=== PATIENT | female | born 1950 | race Caucasian/White ===

== ENCOUNTER → 2016-07-04 | Outpatient (CLI) | payer MEDICARE ==
[2016-07-04 11:30] LABS: HEMATOCRIT 41.8 % (36.0-47.0); HEMOGLOBIN 14.4 g/dL (12.0-15.5); HGB HCT DIFFERENCE 1.4; MEAN CORPUSCULAR HEMOGLOBIN 32.2 pg (27.0-33.4); MEAN CORPUSCULAR HGB CONC 34.5 g/dL (32.0-36.0); MEAN CORPUSCULAR VOLUME 93 fl (80-97); RED BLOOD COUNT 4.48 10^6/uL (3.72-5.28); RED CELL DISTRIBUTION WIDTH 12.8 % (11.5-14.0); WHITE BLOOD COUNT 5.9 10^3/uL (4.0-10.5)
[2016-07-04 11:44] LABS: ALANINE AMINOTRANSFERASE 22 U/L (9-52); ALBUMIN 4.4 g/dL (3.5-5.0); ALKALINE PHOSPHATASE 64 U/L (38-126); ANION GAP 13 (5-19); ASPARTATE AMINO TRANSFERASE 24 U/L (14-36); BILIRUBIN,DIRECT 0.3 mg/dL (0.0-0.4); BILIRUBIN,TOTAL 0.7 mg/dL (0.2-1.3); BLOOD UREA NITROGEN 29 mg/dL (7-20); CALCIUM 9.8 mg/dL (8.4-10.2); CARBON DIOXIDE 26 mmol/L (22-30); CHLORIDE 105 mmol/L (98-107); CHOLESTEROL 223.62 mg/dL (0-200); CREATININE RESULT 1.12 mg/dL (0.52-1.25); Direct HDL 41 mg/dL (>40); GLUCOSE 100 mg/dL (75-110); POTASSIUM 4.1 mmol/L (3.6-5.0); SODIUM 144.1 mmol/L (137-145); TOTAL PROTEIN 6.7 g/dL (6.3-8.2); TRIGLYCERIDES 163 mg/dL (<150)
[2016-07-04 11:55] LABS: DIRECT LDL 129 mg/dL (<100)
[2016-07-04 12:01] LABS: VLDL CHOLESTEROL 32.6 mg/dL (10-31)
== END ==
LOC: LAB 11:11
PROVIDERS: ATTEND Physician Assistant
DX: E03.9 Hypothyroidism, unspecified (principal); E78.5 Hyperlipidemia, unspecified; R60.0 Localized edema
CPT/HCPCS: 36415; 80053; 80061; 84443; 85027

== ENCOUNTER 2016-10-04 10:38 | Emergency (ER) | payer MEDICARE ==
[2016-10-04 10:49] VITALS: BP 128/75
[2016-10-04] MEDS ORDERED: ASPIRIN 81 MG TABLET, CHEWABLE PO ONE (11:06)
[2016-10-04] MEDS ORDERED: LIDOCAINE 5% (700 MG) TRANSDERMAL ADH..PATCH TP ONE (11:07)
[2016-10-04 11:40] LABS: ABSOLUTE EOSINOPHILS # (AUTO) 0.1 10^3/uL (0.0-0.6); ABSOLUTE LYMPHOCYTES (AUTO) 1.9 10^3/uL (0.5-4.7); ABSOLUTE MONOCYTES (AUTO) 0.4 10^3/uL (0.1-1.4); ABSOLUTE NEUT (AUTO) 3.4 10^3/uL (1.7-8.2); BASOPHILS % (AUTO) 0.6 % (0-2); EOSINOPHILS % (AUTO) 1.4 % (0-6); HEMATOCRIT 40.2 % (36.0-47.0); HEMOGLOBIN 13.7 g/dL (12.0-15.5); HGB HCT DIFFERENCE 0.9; LYMPHOCYTES % (AUTO) 32.5 % (13-45); MEAN CORPUSCULAR HEMOGLOBIN 32.7 pg (27.0-33.4); MEAN CORPUSCULAR HGB CONC 34.1 g/dL (32.0-36.0); MEAN CORPUSCULAR VOLUME 96 fl (80-97); MONOCYTES % (AUTO) 7.3 % (3-13); RED CELL DISTRIBUTION WIDTH 12.4 % (11.5-14.0); SEGMENTED NEUTROPHILS % (AUTO) 58.2 % (42-78); WHITE BLOOD COUNT 5.8 10^3/uL (4.0-10.5)
[2016-10-04 11:45] LABS: PROTHROMBIN TIME 12.6 SEC (11.4-15.4)
[2016-10-04 11:55] LABS: ALANINE AMINOTRANSFERASE 22 U/L (9-52); ALBUMIN 4.1 g/dL (3.5-5.0); ALKALINE PHOSPHATASE 57 U/L (38-126); ANION GAP 11 (5-19); ASPARTATE AMINO TRANSFERASE 17 U/L (14-36); BILIRUBIN,DIRECT 0.4 mg/dL (0.0-0.4); BILIRUBIN,TOTAL 0.7 mg/dL (0.2-1.3); BLOOD UREA NITROGEN 25 mg/dL (7-20); CALCIUM 9.3 mg/dL (8.4-10.2); CARBON DIOXIDE 24 mmol/L (22-30); CHLORIDE 104 mmol/L (98-107); CREATINE KINASE 46 U/L (30-135); CREATININE RESULT 1.12 mg/dL (0.52-1.25); GLUCOSE 93 mg/dL (75-110); POTASSIUM 4.4 mmol/L (3.6-5.0); SODIUM 138.9 mmol/L (137-145); TOTAL PROTEIN 6.3 g/dL (6.3-8.2)
[2016-10-04 11:58] LABS: D-DIMER < 0.27 ug/mL (0.00-0.50)
--- NOTE | 2016-10-04 12:01 | RADIOLOGY REPORT (SQ) ---
EXAM DESCRIPTION: CHEST PA/LAT COMPLETED DATE/TIME: 10/04/2016 11:47 am REASON FOR STUDY: left shoulder COMPARISON: None. EXAM PARAMETERS: NUMBER OF VIEWS: two views TECHNIQUE: Digital Frontal and Lateral radiographic views of the chest acquired. RADIATION DOSE: NA LIMITATIONS: none FINDINGS: LUNGS AND PLEURA: No opacities, masses or pneumothorax. No pleural effusion. MEDIASTINUM AND HILAR STRUCTURES: No masses or contour abnormalities. HEART AND VASCULAR STRUCTURES: Heart normal size. No evidence for failure. BONES: No acute findings. HARDWARE: None in the chest. OTHER: No other significant finding. IMPRESSION: NO SIGNIFICANT RADIOGRAPHIC FINDING IN THE CHEST. TECHNICAL DOCUMENTATION: JOB ID: [id number] [employer]- All Rights Reserved
--- NOTE | 2016-10-04 12:04 | RADIOLOGY REPORT (SQ) ---
EXAM DESCRIPTION: CERV SP 4 OR 5 VIEWS COMPLETED DATE/TIME: 10/04/2016 11:47 am REASON FOR STUDY: left shoulder pain COMPARISON: None. NUMBER OF VIEWS: Five views. TECHNIQUE: AP, lateral, obliques and odontoid radiographic images acquired of the cervical spine. LIMITATIONS: None. FINDINGS: MINERALIZATION: Normal. ALIGNMENT: Anatomic. VERTEBRAE: Vertebral bodies of normal height. DISCS: Disc spaces are mildly narrowed at C3-4 and C4-5. There is greater narrowing at C5-6 and C6-7 . Bridging osteophytes are seen anteriorly in these latter 2 levels. Anterior osteophytes are prese nt at C3 and C4 as well. FORAMINA: No osteophytes or foraminal narrowing. LATERAL AND POSTERIOR ELEMENTS: Facets, lateral masses and spinous processes without significant find ings. HARDWARE: None in the spine. SOFT TISSUES: No masses or calcifications. Lung apices clear. OTHER: No other significant finding. IMPRESSION: Degenerative disc disease and spondylosis as described. TECHNICAL DOCUMENTATION: JOB ID: [id number] [employer]- All Rights Reserved
--- NOTE | 2016-10-04 12:54 | EKG REPORT ---
SEVERITY:- OTHERWISE NORMAL ECG - SINUS RHYTHM LEFT AXIS DEVIATION : Confirmed by: Ralph Wheat 04-Oct-2016 12:54:16
--- NOTE | 2016-10-04 15:14 | ER Document Report ---
ED General - General Chief Complaint: Shoulder Pain Stated Complaint: SHOULDER PAIN Time Seen by Provider: 10/04/16 11:06 TRAVEL OUTSIDE OF THE [place] IN LAST 30 DAYS: No - HPI Patient complains to provider of: Left shoulder pain Notes: Patient coming in for evaluation of shoulder pain ongoing for >72 hours. Patient was recently seen at [facility] on October 02 states had a complete workup performed states that cardiac causes and pulmonary causes of her pain were ruled out however this morning with still increased pain. Patient denies weakness states pain with range of motion denies any trauma patient is currently worried about shingles however states that there is no rashes. States pain to palpation. Pain left lateral side of the neck that goes down into her arm sharp shooting. Denies fevers chills nausea vomiting drug abuse alcohol abuse - Related Data Allergies/Adverse Reactions: cephalexin [From Keflex] Allergy (Verified 10/04/16 10:49) Past Medical History - Social History Smoking Status: Never Smoker Chew tobacco use (# tins/day): No Frequency of alcohol use: None Drug Abuse: None Family History: Reviewed & Not Pertinent Renal/ Medical History: Denies: Hx Peritoneal Dialysis Past Surgical History: Reports: Hx Section, Hx Tonsillectomy - Immunizations Hx Diphtheria, Pertussis, Tetanus Vaccination: No Review of Systems - Review of Systems Constitutional: No symptoms reported EENT: No symptoms reported Cardiovascular: No symptoms reported Respiratory: No symptoms reported Gastrointestinal: No symptoms reported Genitourinary: No symptoms reported Female Genitourinary: No symptoms reported Musculoskeletal: Other - Left shoulder pain Skin: No symptoms reported Hematologic/Lymphatic: No symptoms reported Neurological/Psychological: No symptoms reported Physical Exam - Vital signs Vitals: Temp Pulse Resp BP Pulse Ox 97.7 F 59 L 18 128/75 H 98 10/04/16 10:44 10/04/16 10:44 10/04/16 10:44 10/04/16 10:44 10/04/16 10:44 Interpretation: Normal - General General appearance: Appears well, Alert - HEENT Head: Normocephalic, Atraumatic Eyes: Normal Pupils: PERRL - Respiratory Respiratory status: No respiratory distress Chest status: Nontender Breath sounds: Normal Chest palpation: Normal - Cardiovascular Rhythm: Regular Heart sounds: Normal auscultation Murmur: No - Abdominal Inspection: Normal Distension: No distension Bowel sounds: Normal Tenderness: Nontender Organomegaly: No organomegaly - Back Back: Normal, Nontender - Extremities General upper extremity: Normal inspection, Tender - Tenderness palpation of the upper trap underneath the Across to the supraspinatus muscle no bruising no deformity range of motion is performed however then cautiously due to pain., Normal color, Normal ROM, Normal temperature General lower extremity: Normal inspection, Nontender, Normal color, Normal ROM , Normal temperature, Normal weight bearing. No: Francoise's sign - Neurological Neuro grossly intact: Yes Cognition: Normal Orientation: AAOx4 Rupal Coma Scale Eye Opening: Spontaneous Rupal Coma Scale Verbal: Oriented [place] Coma Scale Motor: Obeys Commands [place] Coma Scale Total: 15 Speech: Normal Motor strength normal: LUE, RUE, LLE, RLE Sensory: Normal - Psychological Associated symptoms: Normal affect, Normal mood - Skin Skin Temperature: Warm Skin Moisture: Dry Skin Color: Normal Course - Re-evaluation Re-evalutation: 10/04/16 15:16 The patient has more likely's muscle skeletal shoulder pain as the patient's shoulder pain is not suggestive of pulmonary embolus, cardiac ischemia, aortic dissection, or other serious etiology. Given the extremely low risk of these diagnoses further testing and evaluation for these possibilities does not appear to be indicated at this time. The patient has been instructed to return if the symptoms worsen or change in any way. Cervical x-rays did show degenerative changes more likely radicular pain going to the shoulder. Will treat with Lidoderm patient is encouraged to continue the Percocet that was prescribed for at her last ER visit. Patient was also encouraged to start taking steroids that were prescribed. Encourage patient to follow-up with primary care for further testing if pain does not resolve with treatment modalities. We did attempt to obtain records from [facility] however we were told that they would not be available until 1500 hrs. - Vital Signs Vital signs: Temp Pulse Resp BP Pulse Ox 97.7 F 59 L 18 128/75 H 98 10/04/16 10:44 10/04/16 10:44 10/04/16 10:44 10/04/16 10:44 10/04/16 10:44 - Laboratory Result Diagrams: 10/04/16 11:24 10/04/16 11:24 Laboratory results interpreted by me: 10/04/16 11:24 BUN 25 H Est GFR ( Amer) 59 L Est GFR (Non-Af Amer) 49 L Discharge - Discharge Clinical Impression: Left shoulder pain Qualifiers: Chronicity: acute Qualified Code(s): M25.512 - Pain in left shoulder Condition: Good Disposition: HOME, SELF-CARE Instructions: [facility] Injury ([facility]), Exercise Program for the Shoulder ([facility]), Radiculopathy ([facility]) Additional Instructions: Your x-rays today do not show any significant pathology her chest however there are 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 There is not any good method here in the ER to control this pain we will start you on a low dose of steroids for the next few days to see if this will aid however the definitive treatment will be to follow-up with your primary care physician or orthopedic doctor listed for further evaluation. Your EKG and laboratory testing does not show any signs of significant cardiac pathology as well. I will provide you with a prescription for lidocaine patches however these are very expensive unless insurance will not cover them. There is an over-the- counter option that is cheaper lidocaine gel cream and patches please ask her pharmacist about these possible pain control modalities. Prescriptions: Lidocaine [Lidoderm 5% (700 mg) Transdermal Patch] 1 patch TP DAILY #30 adh..patch Prednisone [Deltasone 20 mg Tablet] 3 tab PO DAILY 5 Days
== END 2016-10-04 13:05 | disposition home or self-care (01) ==
LOC: ER 10:38
DX: M25.512 Pain in left shoulder (principal); M54.2 Cervicalgia
CPT/HCPCS: 93005; 99284; 36415; 82553; 82550; 85025; 85610; 80053; 84484; 85379; 72050; 71020; 93010; A9270

== ENCOUNTER 2016-10-07 12:18 | Emergency (ER) | payer MEDICARE ==
--- NOTE | 2016-10-07 13:18 | ER Document Report ---
ED Neck/Back Problem - General Chief Complaint: Back Pain Stated Complaint: BACK PAIN Time Seen by Provider: 10/07/16 13:00 Mode of Arrival: Ambulatory Information source: Patient Notes: [id number] female presents to ED for complaint of back and left shoulder pain. She states that she has been having to help her up and down and lifting him and she thinks she is injured her back and shoulder. Patient was seen 3 days ago for the same complaint in the emergency room. Patient states she was going to follow-up with her PCP and but they were out of the office for this week. TRAVEL OUTSIDE OF THE [place] IN LAST 30 DAYS: No - HPI Patient complains to provider of: Upper back - and left shoulder Onset: Other - 5-6 days Where: Home Onset: Gradual Timing: Still present Quality of pain: Sharp Severity: Severe Pain Level: 5 Context: Lifting Recent injury: Possibly Associated symptoms: Like prior neck/back pain, Upper back pain. denies: Motor loss, Numbness/tingling Exacerbated by: Other - movement of shoulder Relieved by: Nothing Similar symptoms previously: Yes Recently seen / treated by doctor: Yes - Related Data Allergies/Adverse Reactions: cephalexin [From Keflex] Allergy (Verified 10/04/16 10:49) Past Medical History - General Information source: Patient - Social History Smoking Status: Never Smoker Cigarette use (# per day): No Chew tobacco use (# tins/day): No Smoking Education Provided: No Frequency of alcohol use: None Drug Abuse: None Lives with: Family Family History: Reviewed & Not Pertinent Patient has suicidal ideation: No Patient has homicidal ideation: No - Past Medical History Cardiac Medical History: Reports: None Pulmonary Medical History: Reports: None EENT Medical History: Reports: None Neurological Medical History: Reports: None Endocrine Medical History: Reports: None Renal/ Medical History: Reports: None Malignancy Medical History: Reports: None GI Medical History: Reports: None Musculoskeltal Medical History: Reports Hx Musculoskeletal Trauma - left shoulder and back pain Skin Medical History: Reports None Psychiatric Medical History: Reports: None Traumatic Medical History: Reports: None Infectious Medical History: Reports: None Past Surgical History: Reports: Hx Section, Hx Tonsillectomy - Immunizations Hx Diphtheria, Pertussis, Tetanus Vaccination: No Review of Systems - Review of Systems Constitutional: No symptoms reported EENT: No symptoms reported Cardiovascular: No symptoms reported Respiratory: No symptoms reported Gastrointestinal: No symptoms reported Genitourinary: No symptoms reported Female Genitourinary: No symptoms reported Musculoskeletal: Back pain, Joint pain - left shoulder and upper back pain Skin: No symptoms reported Hematologic/Lymphatic: No symptoms reported Neurological/Psychological: No symptoms reported -: Yes All other systems reviewed and negative Physical Exam - Vital signs Vitals: Temp Pulse Resp BP Pulse Ox 97.9 F 59 L 21 H 92/70 L 97 10/07/16 12:21 10/07/16 12:21 10/07/16 12:21 10/07/16 12:21 10/07/16 12:21 Interpretation: Normal - General General appearance: Appears well, Alert - HEENT Head: Normocephalic, Atraumatic Eyes: Normal Pupils: PERRL - Respiratory Respiratory status: No respiratory distress Chest status: Nontender Breath sounds: Normal Chest palpation: Normal - Cardiovascular Rhythm: Regular Heart sounds: Normal auscultation Murmur: No - Abdominal Inspection: Normal Distension: No distension Bowel sounds: Normal Tenderness: Nontender Organomegaly: No organomegaly - Back Back: Normal, Tender - left upper back. No: Deformity/step-off, CVA tenderness , Vertebra tenderness, Scars, Scoliosis, Wounds - Extremities General upper extremity: Normal inspection, Normal color, Normal temperature General lower extremity: Normal inspection, Nontender, Normal color, Normal ROM , Normal temperature, Normal weight bearing. No: Francoise's sign Shoulder: Tender. No: Limited ROM - pain with range of motion - Neurological Neuro grossly intact: Yes Cognition: Normal Orientation: AAOx4 [place] Coma Scale Eye Opening: Spontaneous [place] Coma Scale Verbal: Oriented Rupal Coma Scale Motor: Obeys Commands Rupal Coma Scale Total: 15 Speech: Normal Motor strength normal: LUE, RUE, LLE, RLE Sensory: Normal - Psychological Associated symptoms: Normal affect, Normal mood - Skin Skin Temperature: Warm Skin Moisture: Dry Skin Color: Normal Course - Re-evaluation Re-evalutation: 10/07/16 23:22 The patient again on the back exercises and exercises for the left shoulder. - Vital Signs Vital signs: Temp Pulse Resp BP Pulse Ox 97.9 F 57 L 16 110/58 L 97 10/07/16 12:21 10/07/16 13:30 10/07/16 13:30 10/07/16 13:30 10/07/16 13:30 Discharge - Discharge Clinical Impression: Upper back pain Left shoulder pain Qualifiers: Chronicity: unspecified Qualified Code(s): M25.512 - Pain in left shoulder Condition: Stable Disposition: HOME, SELF-CARE Instructions: Exercise Program for the Shoulder ([facility]), Family Physicians / Practices Additional Instructions: LOW BACK PAIN: Three out of every four people will have an episode of disabling back pain during their lifetime. Most commonly the pain is due to straining of the muscles and ligaments in the low back. Usual treatment includes: (1) Rest on a firm surface. Avoid lying on your stomach. (2) Ice pack the painful area. After a few days, gentle heat may be used intermittently to relax the area, or ice packs can be continued. (3) Medication may be needed -- muscle relaxers and antiinflammatory medicines are commonly used. (4) As the back improves, exercises are prescribed to strengthen the back and abdominal muscles. Your doctor will advise you on the proper care for your back at each stage in your recovery. You may be better in a few days -- or healing may take several weeks. If new symptoms of a "herniated disc" (radiation of pain, numbness, or tingling down the back of the leg or weakness in the leg) occur, you should be re-examined. Further testing may be necessary. Shoulder Injury You have injured your shoulder. This usually results from stretching or tearing of the tendons during trauma. Time and protection are required in order to heal properly. Many injuries are quite disabling, and should be taken seriously. Initial treatment includes cold packs and a sling to rest the shoulder. The physician has assessed the seriousness of your injury, and has outlined a treatment plan. Understand that this treatment may change, depending on how you progress. If a re-examination was recommended, it is important that you follow up as instructed. Some shoulder injuries (such as partial tear of the rotator cuff) are only suspected after you've failed to improve. Call us if there's severe pain, numbness, or loss of function. Anti-Inflammatory Medication You have received a prescription for an antiinflammatory agent. This is an excellent, safe drug for pain control. In addition, it has potent antiinflammatory effects which are beneficial, especially in the treatment of injuries, arthritis, or tendonitis. It's best to take this medicine with food. Persons with ulcer disease or allergy to aspirin should notify their physician of this before taking this drug. Take the medication exactly as prescribed. Don't take additional doses unless instructed to do so by your doctor. If you develop wheezing, shortness of breath, hives, faintness, stomach pain, vomiting, or dark black stools, return for re-evaluation at once. ICE PACKS: Apply ice packs frequently against the painful area. Many different schedules are recommended, such as "20 minutes on, 20 minutes off" or "one hour ice, two hours rest." If you need to work, you may need to go longer between ice treatments. You should plan to have the area ice packed AT LEAST one fourth of the time. The ice should be applied over the wrap, tape, or splint, or over a layer of cloth -- not directly against the skin. Some ice bags have a built-in cloth and can be put directly on the skin. WARM PACKS: After approximately two days, apply gentle heat (such as a heating pad or hot water bottle) for about 20 to 30 minutes about every two hours -- at least four times daily. Warmth and elevation will help you make a more rapid recovery , and will ease the pain considerably. Do not use HOT heat, and never apply heat for longer than 30 minutes. The continuous heat can invisibly damage skin and muscles -- even when no burn is seen on the surface. Damaged muscles can make you MORE sore. FOLLOW-UP CARE: If you have been referred to a physician for follow-up care, call the physician s office for an appointment as you were instructed or within the next two days. If you experience worsening or a significant change in your symptoms, notify the physician immediately or return to the Emergency Department at any time for re-evaluation. Prescriptions: Naproxen 500 mg PO BIDP PRN #14 tablet PRN Reason: Referrals: KRISTOPHER HEAD, DO [ACTIVE STAFF] - Follow up as needed
[2016-10-07 13:31] VITALS: BP 110/58
== END 2016-10-07 13:32 | disposition home or self-care (01) ==
LOC: ER 12:18
DX: M54.6 Pain in thoracic spine (principal); M25.512 Pain in left shoulder; M54.9 Dorsalgia, unspecified; X50.9XXA Other and unspecified overexertion or strenuous movements or postures, initial encounter
CPT/HCPCS: 99282

== ENCOUNTER → 2016-10-16 | Outpatient (CLI) | payer MEDICARE, OTHER ==
--- NOTE | 2016-10-16 17:48 | RADIOLOGY REPORT (SQ) ---
EXAM DESCRIPTION: MRI CERVICAL SPINE WITHOUT COMPLETED DATE/TIME: 10/16/2016 5:00 pm REASON FOR STUDY: PAIN IN LEFT ARM, ANESTHESIA OF SKIN M79.602 PAIN IN LEFT ARM R20.0 ANESTHESIA O F SKIN R20.2 PARESTHESIA OF SKIN COMPARISON: None. TECHNIQUE: Sagittal and Axial imaging includes T1, T2, STIR and gradient echo sequences. LIMITATIONS: None. FINDINGS: ALIGNMENT: Normal. VERTEBRAE: Intact. BONE MARROW: Normal. No marrow replacement or reactive changes. DISCS: Diffuse decreased T2 weighted intervertebral disc signal. Disc space loss of height at C5-6 a nd C6-7 with disc desiccation HARDWARE: None in the spine. CORD AND BASE OF BRAIN: Normal in size and signal intensity. SOFT TISSUES: No soft tissue masses. C1-C2: No significant spinal stenosis. C2-C3: No significant spinal stenosis or exit foraminal stenosis. C3-C4: Mild diffuse posterior disc bulge, without central stenosis. Mild bilateral foraminal narrowi ng from facet and uncovertebral hypertrophy. C4-C5: Mild diffuse posterior disc bulge. No central stenosis. No flattening or abnormal intrinsic cord signal. Mild bilateral foraminal narrowing from facet and uncovertebral hypertrophy C5-C6: Mild posterior disc bulging partly effaces the ventral thecal sac and abuts the ventral cord w ithout cord flattening or abnormal intrinsic cord signal. Borderline central canal narrowing. Mild bilateral foraminal narrowing from facet and uncovertebral hypertrophy C6-C7: Mild diffuse posterior disc bulge and bony spurring partly effaces the ventral thecal sac and abuts the ventral cord without cord flattening or abnormal intrinsic cord signal. Borderline central canal narrowing. Mild bilateral foraminal narrowing from facet and uncovertebral hypertrophy. C7-T1: Moderate size left paracentral and proximal foraminal disc protrusion and bony spur. This cau ses high-grade left C7-T1 foraminal narrowing and is best shown on axial series 7, image 133. No mary tral stenosis or right foraminal narrowing. UPPER THORACIC: Incompletely imaged. No significant spinal stenosis or exit foraminal stenosis. OTHER: No other significant finding. IMPRESSION: Moderate-sized left paracentral and proximal foraminal disc protrusion and bony spurring at C7-T1 with significant left foraminal narrowing TECHNICAL DOCUMENTATION: JOB ID: [id number] [email or web address]- All Rights Reserved
== END ==
LOC: RAD 15:45
PROVIDERS: ATTEND Physician Assistant Medical
DX: M79.602 Pain in left arm (principal); R20.0 Anesthesia of skin; R20.2 Paresthesia of skin
CPT/HCPCS: 72141

== ENCOUNTER → 2017-01-13 | Outpatient (CLI) | payer MEDICARE, OTHER ==
[2017-01-13 13:08] LABS: HEMATOCRIT 40.5 % (36.0-47.0); HGB HCT DIFFERENCE 1.5; MEAN CORPUSCULAR HEMOGLOBIN 32.4 pg (27.0-33.4); MEAN CORPUSCULAR HGB CONC 34.7 g/dL (32.0-36.0); MEAN CORPUSCULAR VOLUME 94 fl (80-97); RED BLOOD COUNT 4.33 10^6/uL (3.72-5.28); RED CELL DISTRIBUTION WIDTH 12.3 % (11.5-14.0); WHITE BLOOD COUNT 6.6 10^3/uL (4.0-10.5)
[2017-01-13 13:33] LABS: ALANINE AMINOTRANSFERASE 28 U/L (9-52); ALBUMIN 4.2 g/dL (3.5-5.0); ALKALINE PHOSPHATASE 57 U/L (38-126); ANION GAP 12 (5-19); ASPARTATE AMINO TRANSFERASE 20 U/L (14-36); BILIRUBIN,DIRECT 0.4 mg/dL (0.0-0.4); BILIRUBIN,TOTAL 0.6 mg/dL (0.2-1.3); BLOOD UREA NITROGEN 22 mg/dL (7-20); CALCIUM 9.4 mg/dL (8.4-10.2); CARBON DIOXIDE 31 mmol/L (22-30); CHLORIDE 102 mmol/L (98-107); CHOLESTEROL 204.23 mg/dL (0-200); CREATININE RESULT 0.97 mg/dL (0.52-1.25); Direct HDL 45 mg/dL (>40); GLUCOSE 122 mg/dL (75-110); SODIUM 145.1 mmol/L (137-145); TOTAL PROTEIN 6.4 g/dL (6.3-8.2); TRIGLYCERIDES 154 mg/dL (<150)
[2017-01-13 13:45] LABS: DIRECT LDL 138 mg/dL (<100)
[2017-01-13 13:46] LABS: VLDL CHOLESTEROL 30.8 mg/dL (10-31)
== END ==
LOC: LAB 12:24
PROVIDERS: ATTEND Physician Assistant
DX: E03.9 Hypothyroidism, unspecified (principal); E78.5 Hyperlipidemia, unspecified; R60.0 Localized edema; R73.9 Hyperglycemia, unspecified
CPT/HCPCS: 36415; 80053; 80061; 83036; 84443; 85027

== ENCOUNTER 2017-05-01 15:07 | Emergency (ER) | payer MEDICARE, OTHER ==
[2017-05-01] MEDS ORDERED: IBUPROFEN 600 MG TABLET PO ONE (16:35)
--- NOTE | 2017-05-01 16:37 | ER Document Report ---
HPI - HPI Patient complains to provider of: Right knee pain Onset: Yesterday Onset/Duration: Sudden Quality of pain: Achy Pain Level: 4 Context: Patient presents complaining of right knee pain off and on since February of this year. Patient states that back in February a large dog struck her knee causing it to push posteriorly. Patient states today her dog jumped on her knee aggravating her right knee pain. Patient states she has a chronic peripheral edema for which she takes a fluid pill. Patient denies any recent bed rest immobilization or travel. Associated Symptoms: Other - Right knee pain. denies: Chest pain, Nonproductive cough, Productive cough Exacerbated by: Standing, Movement, Walking Relieved by: Denies Similar symptoms previously: Yes Recently seen / treated by doctor: No - ROS ROS below otherwise negative: Yes Systems Reviewed and Negative: Yes All other systems reviewed and negative - CONSTITUTIONAL Constitutional: DENIES: Fever - CARDIOVASCULAR Cardiovascular: DENIES: Chest pain - RESPIRATORY Respiratory: DENIES: Trouble Breathing - MUSCULOSKELETAL Musculoskeletal: REPORTS: Extremity pain, Swelling - DERM Skin Color: Normal Skin Problems: None Past Medical History - General Information source: Patient - Social History Smoking Status: Never Smoker Frequency of alcohol use: None Drug Abuse: None Occupation: None Family History: Reviewed & Not Pertinent - Past Medical History Cardiac Medical History: Reports: Other - Peripheral edema Endocrine Medical History: Reports: Hx Hypothyroidism Renal/ Medical History: Denies: Hx Peritoneal Dialysis Musculoskeltal Medical History: Reports Hx Musculoskeletal Trauma - left shoulder and back pain Past Surgical History: Reports: Hx Section, Hx Tonsillectomy - Immunizations Hx Diphtheria, Pertussis, Tetanus Vaccination: No Vertical Provider Document - CONSTITUTIONAL Agree With Documented VS: Yes Exam Limitations: No Limitations General Appearance: WD/WN, No Apparent Distress - INFECTION CONTROL TRAVEL OUTSIDE OF THE [place] IN LAST 30 DAYS: No - HEENT HEENT: Atraumatic, Normocephalic - NECK Neck: Normal Inspection, Supple - RESPIRATORY Respiratory: Breath Sounds Normal, No Respiratory Distress O2 Sat by Pulse Oximetry: 98 - CARDIOVASCULAR Cardiovascular: Regular Rate, Regular Rhythm, No Murmur Pulses: Normal: Dorsalis pedis - BACK Back: Normal Inspection - MUSCULOSKELETAL/EXTREMETIES Musculoskeletal/Extremeties: MAEW, Tender - Right knee tenderness to popliteal area, right knee joint mildly swollen, swelling noted to bilateral lower extremities, right worse than left, Edema - Right lower extremity, right knee. negative: Eccymosis - NEURO Level of Consciousness: Awake, Alert, Appropriate Motor/Sensory: No Motor Deficit - DERM Integumentary: Warm, Dry, No Rash Course - Vital Signs Vital signs: Temp Pulse Resp BP Pulse Ox 98.0 F 71 124/60 98 05/01/17 15:28 05/01/17 15:28 05/01/17 15:28 05/01/17 15:28 - Diagnostic Test Radiology reviewed: Image reviewed, Reports reviewed Discharge - Discharge Clinical Impression: Right knee sprain Qualifiers: Encounter type: initial encounter Involved ligament of knee: unspecified ligament Qualified Code(s): S83.91XA - Sprain of unspecified site of right knee , initial encounter Condition: Stable Disposition: HOME, SELF-CARE Instructions: Use of Crutches ([facility]), Ice & Elevation ([facility]), Suspected Internal Knee Injury ([facility]), Knee Immobilizing Splint ([facility]), Sprained Knee ([facility]) Additional Instructions: Return immediately for any new or worsening symptoms Followup with your primary care provider, call tomorrow to make a followup appointment Weightbearing as tolerated Take Tylenol or your naproxen at home as directed for pain relief Referrals: [facility] [Provider Group] - Follow up in 3-5 days
--- NOTE | 2017-05-01 17:27 | RADIOLOGY REPORT (SQ) ---
EXAM DESCRIPTION: KNEE RIGHT 4 VIEWS COMPLETED DATE/TIME: 05/01/2017 5:20 pm REASON FOR STUDY: r knee pain COMPARISON: None. NUMBER OF VIEWS: Four views. TECHNIQUE: AP, lateral, and both oblique radiographic images acquired of the right knee. LIMITATIONS: None. FINDINGS: MINERALIZATION: Normal. BONES: No acute fracture or dislocation. No worrisome bone lesions. JOINT: No effusion. SOFT TISSUES: No soft tissue swelling. No radio-opaque foreign body. OTHER: No other significant finding. IMPRESSION: NEGATIVE STUDY OF THE RIGHT KNEE. NO RADIOGRAPHIC EVIDENCE OF ACUTE INJURY. TECHNICAL DOCUMENTATION: JOB ID: [id number] [employer]- All Rights Reserved Reading location - IP/workstation name: [email or web address]
[2017-05-01 18:26] VITALS: BP 113/65
--- NOTE | 2017-05-02 07:40 | XCELERA REPORT ---
[address] [address] Lower Extremity Venous Evaluation Name: SETH KAUR Age: 66 yrs Gender: Female : 1950 Patient Status: Emergency Patient Location: ER Study Date: 05/01/2017 04:49 PM Procedure: Color flow and duplex imaging of the veins of the right lower extremity as well as the left Common Femoral vein. Reason For Study: RLE swelling, popliteal pain Ordering Physician: KATHERYN COTO Performed By: Manisha Craven Right Sided Venous Evaluation Normal vessel filling wall to wall, compression and augmentation as well as Colour flow down to the infrageniculate veins. Left Sided Venous Evaluation The left common femoral vein is fully compressible. Spontaneous and phasic flow is present in the left common femoral vein. Interpretation Summary No duplex evidence of DVT or obstruction in the right lower extremity nor in the left Common Femoral vein. : KATHERYN COTO > Joey Goncalves
== END 2017-05-01 18:40 | disposition home or self-care (01) ==
LOC: ER 15:07
DX: S83.91XA Sprain of unspecified site of right knee, initial encounter (principal); M25.561 Pain in right knee; W54.1XXA Struck by dog, initial encounter; R60.9 Edema, unspecified; Z79.899 Other long term (current) drug therapy
CPT/HCPCS: 99284; 93971 ×2; 73564; L1830; A9270

== ENCOUNTER → 2017-05-28 | Outpatient (CLI) | payer MEDICARE, OTHER ==
[2017-05-28 11:10] LABS: HEMATOCRIT 40.3 % (36.0-47.0); HEMOGLOBIN 13.7 g/dL (12.0-15.5); MEAN CORPUSCULAR HEMOGLOBIN 31.9 pg (27.0-33.4); MEAN CORPUSCULAR VOLUME 94 fl (80-97); PLATELET COUNT 137 10^3/uL (150-450); RED BLOOD COUNT 4.31 10^6/uL (3.72-5.28); WHITE BLOOD COUNT 8.6 10^3/uL (4.0-10.5)
[2017-05-28 11:28] LABS: ALANINE AMINOTRANSFERASE 22 U/L (9-52); ALBUMIN 4.4 g/dL (3.5-5.0); ALKALINE PHOSPHATASE 61 U/L (38-126); ANION GAP 9 (5-19); ASPARTATE AMINO TRANSFERASE 18 U/L (14-36); BILIRUBIN,DIRECT 0.2 mg/dL (0.0-0.4); BILIRUBIN,TOTAL 0.8 mg/dL (0.2-1.3); BLOOD UREA NITROGEN 23 mg/dL (7-20); CALCIUM 10.1 mg/dL (8.4-10.2); CARBON DIOXIDE 33 mmol/L (22-30); CHLORIDE 104 mmol/L (98-107); CHOLESTEROL 173.15 mg/dL (0-200); GLUCOSE 98 mg/dL (75-110); POTASSIUM 4.2 mmol/L (3.6-5.0); TOTAL PROTEIN 6.4 g/dL (6.3-8.2); TRIGLYCERIDES 110 mg/dL (<150)
[2017-05-28 11:39] LABS: DIRECT LDL 98 mg/dL (<100)
[2017-05-28 11:43] LABS: FREE T3 2.63 pg/mL (2.77-5.27)
[2017-05-28 11:57] LABS: THYROID STIMULATING HORMONE 8.27 uIU/mL (0.47-4.68)
[2017-05-29 08:41] LABS: THYROXINE (T4) 7.1 ug/dL (4.5-12.0)
[2017-05-29 08:45] LABS: TRIIODOTHYRONINE (T3) 64 ng/dL (71-180)
== END ==
LOC: LAB 10:24
PROVIDERS: ATTEND Family Medicine
DX: I10 Essential (primary) hypertension (principal); E03.9 Hypothyroidism, unspecified; M25.469 Effusion, unspecified knee; M25.569 Pain in unspecified knee; Z13.1 Encounter for screening for diabetes mellitus
CPT/HCPCS: 36415; 80053; 80061; 84436; 84443; 84480; 84481; 85027

== ENCOUNTER → 2017-05-29 | Outpatient (CLI) | payer MEDICARE, OTHER ==
--- NOTE | 2017-05-30 15:48 | RADIOLOGY REPORT (SQ) ---
EXAM DESCRIPTION: MRI RT LOWER JOINT WITHOUT COMPLETED DATE/TIME: 05/29/2017 8:47 pm REASON FOR STUDY: PAIN IN RIGHT KNEE M25.561 PAIN IN RIGHT KNEE COMPARISON: 05/01/2017 TECHNIQUE: Rightknee images acquired and stored on PACS. Multiplanar images include fat sensitive s equences as T1, water sensitive sequences as FST2 or STIR, cartilage sensitive sequences as FSPD, and gradient echo sequences. LIMITATIONS: None. FINDINGS: JOINT AND BURSAE: Small joint effusion. Small popliteal cyst. BONE CORTEX AND MARROW: No alteration of signal to suggest marrow replacement. No worrisome bone lesi ons. No occult fracture. ACL: Intact. No degeneration or ganglion cyst. PCL: Intact. MCL: Intact. No periligamentous edema or fluid. LCL: Intact. No periligamentous edema or fluid. MEDIAL MENISCUS: There is a flap tear extending to horizontal tear of medial meniscus. Meniscus is s ubluxed along the medial joint line. LATERAL MENISCUS: No tears. No abnormal signal. MEDIAL COMPARTMENT: Cartilaginous thinning. No osteophytes or reactive edema. LATERAL COMPARTMENT: Cartilage preserved. No bone bruises or reactive marrow edema. No osteophytes. PATELLA: Generalized marked chondromalacia of the patella. Trochlear cartilage is intact. EXTENSOR MECHANISM: Intact. Quadriceps and patella tendons normal. SOFT TISSUES: Adjacent muscles and subcutaneous tissues normal. Normal flow void in popliteal artery and vein. Varicosities. OTHER: No other significant finding. IMPRESSION: Flap tear extending to horizontal tear of the medial meniscus with subluxation along the medial joint line. Mild degenerative changes in medial compartment. Patellar chondromalacia. Joint effusion and small popliteal cyst. TECHNICAL DOCUMENTATION: JOB ID: [id number]- All Rights Reserved Reading location - IP/workstation name: [email or web address]
== END ==
LOC: RAD 18:55
PROVIDERS: ATTEND Nurse Practitioner Family
DX: M25.561 Pain in right knee (principal); M22.41 Chondromalacia patellae, right knee

== ENCOUNTER → 2017-09-30 | Outpatient (CLI) | payer MEDICARE, OTHER | LOC: LAB 12:17 | PROVIDERS: ATTEND Nurse Practitioner Family | DX: E03.9 Hypothyroidism, unspecified (principal) | CPT/HCPCS: 36415; 84436; 84443; 84480 ==

== ENCOUNTER → 2017-12-24 | Outpatient (CLI) | payer MEDICARE, OTHER ==
[2017-12-24 13:36] LABS: FREE T3 3.03 pg/mL (2.77-5.27); FREE T4 (FREE THYROXINE) 1.72 ng/dL (0.78-2.19)
[2017-12-24 13:50] LABS: THYROID STIMULATING HORMONE 2.5 uIU/mL (0.47-4.68)
== END ==
LOC: LAB 12:37
PROVIDERS: ATTEND Physician Assistant Medical
DX: E03.9 Hypothyroidism, unspecified (principal)
CPT/HCPCS: 36415; 84439; 84443; 84481

== ENCOUNTER → 2017-12-30 | Outpatient (CLI) | payer MEDICARE, OTHER ==
[2017-12-30 12:33] LABS: HEMATOCRIT 39.1 % (36.0-47.0); HEMOGLOBIN 13.6 g/dL (12.0-15.5); MEAN CORPUSCULAR HEMOGLOBIN 32.6 pg (27.0-33.4); MEAN CORPUSCULAR HGB CONC 34.7 g/dL (32.0-36.0); MEAN CORPUSCULAR VOLUME 94 fl (80-97); PLATELET COUNT 177 10^3/uL (150-450); RED BLOOD COUNT 4.16 10^6/uL (3.72-5.28); RED CELL DISTRIBUTION WIDTH 13.1 % (11.5-14.0); WHITE BLOOD COUNT 6.2 10^3/uL (4.0-10.5)
[2017-12-30 12:54] LABS: ALANINE AMINOTRANSFERASE 9 U/L (9-52); ALKALINE PHOSPHATASE 53 U/L (38-126); ANION GAP 10 (5-19); ASPARTATE AMINO TRANSFERASE 20 U/L (14-36); BILIRUBIN,DIRECT 0.1 mg/dL (0.0-0.4); BILIRUBIN,TOTAL 0.5 mg/dL (0.2-1.3); BLOOD UREA NITROGEN 25 mg/dL (7-20); CALCIUM 9.8 mg/dL (8.4-10.2); CARBON DIOXIDE 31 mmol/L (22-30); CHLORIDE 102 mmol/L (98-107); GLUCOSE 99 mg/dL (75-110); POTASSIUM 4.3 mmol/L (3.6-5.0); SODIUM 143.3 mmol/L (137-145); TOTAL PROTEIN 6.4 g/dL (6.3-8.2)
== END ==
LOC: LAB 12:05
PROVIDERS: ATTEND Physician Assistant
DX: E03.9 Hypothyroidism, unspecified (principal); E06.3 Autoimmune thyroiditis; R25.2 Cramp and spasm; R53.83 Other fatigue; Z72.820 Sleep deprivation
CPT/HCPCS: 36415; 80053; 82306; 83735; 85027

== ENCOUNTER → 2018-03-20 | Outpatient (CLI) | payer MEDICARE, OTHER ==
--- NOTE | 2018-03-20 16:04 | RADIOLOGY REPORT (SQ) ---
EXAM DESCRIPTION: ANKLE RIGHT COMPLETE COMPLETED DATE/TIME: 03/20/2018 3:25 pm REASON FOR STUDY: M79.671 PAIN IN RIGHT FOOT M79.671 PAIN IN RIGHT FOOT COMPARISON: Right foot films same date NUMBER OF VIEWS: Three views. TECHNIQUE: AP, lateral, and oblique radiographic images acquired of the right ankle. LIMITATIONS: None. FINDINGS: MINERALIZATION: Normal. BONES: No acute fracture or dislocation. No worrisome bone lesions. Small plantar and dorsal calcan eal spurs JOINTS: No disruption of the ankle mortise or ankle joint effusion SOFT TISSUES: Diffuse right lower leg soft tissue swelling. Multiple varicosities in the medial righ t lower leg soft tissues OTHER: No other significant finding. IMPRESSION: Soft tissue swelling. No fracture or malalignment TECHNICAL DOCUMENTATION: JOB ID: [id number] [employer]- All Rights Reserved Reading location - IP/workstation name: [email or web address]
--- NOTE | 2018-03-20 16:06 | RADIOLOGY REPORT (SQ) ---
EXAM DESCRIPTION: FOOT RIGHT COMPLETE COMPLETED DATE/TIME: 03/20/2018 3:25 pm REASON FOR STUDY: M79.671 PAIN IN RIGHT FOOT M79.671 PAIN IN RIGHT FOOT COMPARISON: Right ankle three views same date NUMBER OF VIEWS: Three views. TECHNIQUE: AP, lateral and oblique radiographic images acquired of the right foot. LIMITATIONS: None. FINDINGS: MINERALIZATION: Normal. BONES: No acute fracture or dislocation. No worrisome bone lesions. Small dorsal and plantar calcan eal spurs without superimposed fracture. JOINTS: No ankle joint effusion. SOFT TISSUES: No soft tissue swelling. No foreign body. OTHER: No other significant finding. IMPRESSION: Small dorsal and plantar calcaneal spurs without superimposed fracture TECHNICAL DOCUMENTATION: JOB ID: [id number] [employer]- All Rights Reserved Reading location - IP/workstation name: [email or web address]
[2018-03-20 16:41] LABS: FREE T3 2.67 pg/mL (2.77-5.27); FREE T4 (FREE THYROXINE) 1.25 ng/dL (0.78-2.19)
[2018-03-20 16:54] LABS: THYROID STIMULATING HORMONE 1.86 uIU/mL (0.47-4.68)
== END ==
LOC: RAD 15:03
PROVIDERS: ATTEND Family Medicine
DX: M79.671 Pain in right foot (principal); M77.31 Calcaneal spur, right foot; E55.9 Vitamin D deficiency, unspecified; E03.9 Hypothyroidism, unspecified
CPT/HCPCS: 36415; 82306; 84439; 84443; 84481

== ENCOUNTER → 2018-05-29 | Outpatient (CLI) | payer MEDICARE, OTHER ==
[2018-05-29 13:13] LABS: ALANINE AMINOTRANSFERASE 16 U/L (9-52); ALBUMIN 4.3 g/dL (3.5-5.0); ALKALINE PHOSPHATASE 58 U/L (38-126); ANION GAP 8 (5-19); ASPARTATE AMINO TRANSFERASE 19 U/L (14-36); BILIRUBIN,DIRECT 0.2 mg/dL (0.0-0.4); BILIRUBIN,TOTAL 0.4 mg/dL (0.2-1.3); BLOOD UREA NITROGEN 26 mg/dL (7-20); CARBON DIOXIDE 31 mmol/L (22-30); CHLORIDE 105 mmol/L (98-107); GLUCOSE 102 mg/dL (75-110); POTASSIUM 4.4 mmol/L (3.6-5.0); SODIUM 143.8 mmol/L (137-145); TOTAL PROTEIN 6.7 g/dL (6.3-8.2)
== END ==
LOC: LAB 12:37
PROVIDERS: ATTEND Physician Assistant
DX: R60.9 Edema, unspecified (principal); E03.9 Hypothyroidism, unspecified
CPT/HCPCS: 36415; 80053

== ENCOUNTER → 2018-05-30 | Outpatient (CLI) | payer MEDICARE, OTHER ==
[2018-05-30 16:46] LABS: ALANINE AMINOTRANSFERASE 14 U/L (9-52); ALBUMIN 4.2 g/dL (3.5-5.0); ALKALINE PHOSPHATASE 56 U/L (38-126); ANION GAP 7 (5-19); ASPARTATE AMINO TRANSFERASE 19 U/L (14-36); BILIRUBIN,DIRECT 0.2 mg/dL (0.0-0.4); BILIRUBIN,TOTAL 0.6 mg/dL (0.2-1.3); BLOOD UREA NITROGEN 26 mg/dL (7-20); CALCIUM 9.9 mg/dL (8.4-10.2); CARBON DIOXIDE 29 mmol/L (22-30); CHLORIDE 105 mmol/L (98-107); GLUCOSE 93 mg/dL (75-110); POTASSIUM 4.1 mmol/L (3.6-5.0); SODIUM 140.8 mmol/L (137-145); TOTAL PROTEIN 6.4 g/dL (6.3-8.2)
== END ==
LOC: LAB 16:03
PROVIDERS: ATTEND Nurse Practitioner Gerontology
DX: R07.9 Chest pain, unspecified (principal)
CPT/HCPCS: 36415; 80053; 83880; 84484

== ENCOUNTER → 2018-07-23 | Outpatient (CLI) | payer MEDICARE, OTHER ==
[2018-07-23 15:25] LABS: FREE T3 3.48 pg/mL (2.77-5.27); FREE T4 (FREE THYROXINE) 1.71 ng/dL (0.78-2.19)
[2018-07-23 15:38] LABS: THYROID STIMULATING HORMONE 0.23 uIU/mL (0.47-4.68)
== END ==
LOC: LAB 14:28
PROVIDERS: ATTEND Nurse Practitioner Gerontology
DX: E03.9 Hypothyroidism, unspecified (principal)
CPT/HCPCS: 36415; 84439; 84443; 84481

== ENCOUNTER → 2018-07-31 | Outpatient (CLI) | payer MEDICARE, OTHER ==
[2018-07-31 13:16] LABS: ANION GAP 9 (5-19); BLOOD UREA NITROGEN 25 mg/dL (7-20); CALCIUM 9.7 mg/dL (8.4-10.2); CARBON DIOXIDE 32 mmol/L (22-30); CHLORIDE 101 mmol/L (98-107); GLUCOSE 97 mg/dL (75-110); POTASSIUM 4.4 mmol/L (3.6-5.0); SODIUM 141.7 mmol/L (137-145)
== END ==
LOC: LAB 12:32
PROVIDERS: ATTEND Physician Assistant
DX: E03.9 Hypothyroidism, unspecified (principal); E06.3 Autoimmune thyroiditis; R60.9 Edema, unspecified
CPT/HCPCS: 36415; 80048

== ENCOUNTER → 2018-08-12 | Outpatient (CLI) | payer MEDICARE, OTHER ==
--- NOTE | 2018-08-13 20:12 | XCELERA REPORT ---
[address] [address] Transthoracic Echocardiogram Report Name: SETH KAUR Age: 67 yrs Gender: Female : 1950 Patient Status: Outpatient Patient Location: Study Date: 08/12/2018 01:00 PM Height: 68 in Weight: 204 lb BSA: 2.1 m2 Procedure: A two-dimensional transthoracic echocardiogram with color flow and Doppler was performed. The study was technically difficult with many images being suboptimal in quality. Reason For Study: EDEMA History: EDEMA. Ordering Physician: SUNITA BURGESS Performed By: Lila Tran Interpretation Summary The left ventricle is normal in size. There is normal left ventricular wall thickness. LV EF is > than 60% The left ventricular ejection fraction is within normal limits. Doppler measurements suggest impaired left ventricular relaxation, which is associated with grade I/IV or mild diastolic dysfunction The left ventricular wall motion is normal. There is no thrombus. There is no ventricular septal defect visualized. The right ventricle is grossly normal size. The right ventricle is not well visualized secondary to technical limitations The right atrium is normal. The left atrial size is normal. The interatrial septum is intact with no evidence for an atrial septal defect. There is no Doppler evidence for an interatrial shunt There is no evidence of mitral valve prolapse. There is no vegetation seen on the mitral valve. There is no mitral valve stenosis. There is a trace to mild amount of mitral regurgitation There is no aortic valvular vegetation. There is no aortic valve stenosis There is no LVOT obstruction. No aortic regurgitation is present. There is no tricuspid stenosis. There is a trace amount of tricuspid regurgitation No significant pulmonary hypertension.RVSP is 28 to 33 mm of Hg , with RA mean of 5 to 10. There is no pulmonic valvular stenosis. There is a trace amount of pulmonic regurgitation There is no pericardial effusion. MMode/2D Measurements & Calculations RVDd: 3.3 cm LVIDd: 5.4 cm FS: 33.5 % Ao root diam: 2.7 cm IVSd: 0.73 cm LVIDs: 3.6 cm EDV(Teich): LVPWd: 1.2 cm 139.3 ml Ao root area: ESV(Teich): 53.3 ml5.6 cm2 EF(Teich): 61.7 % EDV(MOD-sp4): SV(MOD-sp4): 93.9 ml 62.7 ml ESV(MOD-sp4): 31.1 ml EF(MOD-sp4): 66.8 % Doppler Measurements & Calculations MV E max shanna: MV dec slope: Ao V2 max: LV V1 max P.6 cm/sec 137.6 cm/sec 3.3 mmHg MV A max shanna: 382.0 cm/sec2 Ao max P.6 mmHgLV V1 max: 129.4 cm/sec MV dec time: 0.30 sec 91.2 cm/sec MV E/A: 0.89 PA V2 max: PI end-d sahnna: TR max shanna: 86.4 cm/sec 79.0 cm/sec 237.4 cm/sec PA max P.0 mmHg TR max P.5 mmHg Left Ventricle The left ventricle is normal in size. There is normal left ventricular wall thickness. LV EF is > than 60%. The left ventricular ejection fraction is within normal limits. Doppler measurements suggest impaired left ventricular relaxation, which is associated with grade I/IV or mild diastolic dysfunction. The left ventricular wall motion is normal. There is no thrombus. There is no ventricular septal defect visualized. Right Ventricle The right ventricle is grossly normal size. The right ventricle is not well visualized secondary to technical limitations. Atria The right atrium is normal. The left atrial size is normal. The interatrial septum is intact with no evidence for an atrial septal defect. There is no Doppler evidence for an interatrial shunt. Mitral Valve There is no evidence of mitral valve prolapse. There is no vegetation seen on the mitral valve. There is no mitral valve stenosis. There is a trace to mild amount of mitral regurgitation. Aortic Valve There is no aortic valvular vegetation. There is no aortic valve stenosis. There is no LVOT obstruction. No aortic regurgitation is present. Tricuspid Valve There is no tricuspid stenosis. There is a trace amount of tricuspid regurgitation. No significant pulmonary hypertension.RVSP is 28 to 33 mm of Hg , with RA mean of 5 to 10. Pulmonic Valve There is no pulmonic valvular stenosis. There is a trace amount of pulmonic regurgitation. Effusions There is no pericardial effusion. : SUNITA BURGESS > Taylor Mujica
== END ==
LOC: SP 12:38
PROVIDERS: ATTEND Internal Medicine Cardiovascular Disease
DX: I49.1 Atrial premature depolarization (principal); R60.9 Edema, unspecified; R94.31 Abnormal electrocardiogram [ECG] [EKG]
CPT/HCPCS: 93306

== ENCOUNTER → 2018-08-14 | Outpatient (CLI) | payer MEDICARE, OTHER ==
[2018-08-14 17:47] LABS: FREE T3 3.26 pg/mL (2.77-5.27); FREE T4 (FREE THYROXINE) 1.37 ng/dL (0.78-2.19)
[2018-08-14 18:00] LABS: THYROID STIMULATING HORMONE 0.39 uIU/mL (0.47-4.68)
== END ==
LOC: LAB 16:30
PROVIDERS: ATTEND Physician Assistant
DX: E03.9 Hypothyroidism, unspecified (principal); E06.3 Autoimmune thyroiditis
CPT/HCPCS: 36415; 84439; 84443; 84481

== ENCOUNTER → 2018-09-29 | Outpatient (CLI) | payer MEDICARE, OTHER ==
[2018-09-29 14:34] LABS: ALBUMIN 4.5 g/dL (3.5-5.0); ALKALINE PHOSPHATASE 58 U/L (38-126); ANION GAP 8 (5-19); ASPARTATE AMINO TRANSFERASE 20 U/L (14-36); BILIRUBIN,DIRECT 0.3 mg/dL (0.0-0.4); BILIRUBIN,TOTAL 0.6 mg/dL (0.2-1.3); BLOOD UREA NITROGEN 23 mg/dL (7-20); CALCIUM 9.6 mg/dL (8.4-10.2); CARBON DIOXIDE 31 mmol/L (22-30); CHLORIDE 102 mmol/L (98-107); GLUCOSE 89 mg/dL (75-110); POTASSIUM 4.3 mmol/L (3.6-5.0); TOTAL PROTEIN 6.7 g/dL (6.3-8.2)
== END ==
LOC: OD 13:06
PROVIDERS: ATTEND Nurse Practitioner
DX: E03.9 Hypothyroidism, unspecified (principal)
CPT/HCPCS: 36415; 80053; 84436; 84443; 84480

== ENCOUNTER 2018-11-18 16:33 | Inpatient (IN) | payer MEDICARE, OTHER ==
--- NOTE | 2018-11-18 16:49 | ER Document Report ---
ED Medical Screen (RME) - General Chief Complaint: Abdominal Pain Stated Complaint: ABDOMINAL PAIN/VOMITING/WEAKNESS Time Seen by Provider: 11/18/18 16:44 Primary Care Provider: CHUCK PATEL FNP-BC [Primary Care Provider] - Follow up as needed Mode of Arrival: Wheelchair Information source: Patient Notes: 68-year-old female presents emergency department with history of hypothyroidism. Reports she had some sharp abdominal pain that started last night that comes and goes. Reports she vomited 3 times reports emesis was dark brown. Denies GI bleed. Denies bloody stools. Reports last bowel movement was yesterday was hard stool. Denies fever. Denies pain with void but reports she was recently treated for a bladder infection 2 months ago. No pain with palpation to her abdomen. I have greeted and performed a rapid initial assessment of this patient. A comprehensive ED assessment and evaluation of the patient, analysis of test results and completion of the medical decision making process will be conducted by additional ED providers. Dictation of this chart was performed using voice recognition software; therefore, there may be some unintended grammatical errors. TRAVEL OUTSIDE OF THE [place] IN LAST 30 DAYS: No - Related Data Allergies/Adverse Reactions: cephalexin [From Keflex] Allergy (Verified 11/18/18 16:47) Past Medical History - Social History Chew tobacco use (# tins/day): No Frequency of alcohol use: None Drug Abuse: None Endocrine Medical History: Reports: Hx Hypothyroidism Renal/ Medical History: Denies: Hx Peritoneal Dialysis Musculoskeltal Medical History: Reports Hx Musculoskeletal Trauma - left shoulder and back pain Past Surgical History: Reports: Hx Section, Hx Tonsillectomy - Immunizations Hx Diphtheria, Pertussis, Tetanus Vaccination: No Physical Exam - Vital signs Vitals: Temp Pulse Resp BP Pulse Ox 97.9 F 88 18 111/88 H 97 11/18/18 16:38 11/18/18 16:38 11/18/18 16:38 11/18/18 16:38 11/18/18 16:38 Course - Vital Signs Vital signs: Temp Pulse Resp BP Pulse Ox 97.9 F 88 18 111/88 H 97 11/18/18 16:38 11/18/18 16:38 11/18/18 16:38 11/18/18 16:38 11/18/18 16:38 Doctor's Discharge - Discharge Referrals: CHUCK PATEL, [employer]-BC [Primary Care Provider] - Follow up as needed
[2018-11-18 17:16] LABS: ABSOLUTE LYMPHOCYTES (AUTO) 0.9 10^3/uL (0.5-4.7); ABSOLUTE MONOCYTES (AUTO) 0.7 10^3/uL (0.1-1.4); ABSOLUTE NEUT (AUTO) 9.8 10^3/uL (1.7-8.2); BASOPHILS % (AUTO) 0.3 % (0-2); HEMATOCRIT 41.4 % (36.0-47.0); HEMOGLOBIN 14.2 g/dL (12.0-15.5); LYMPHOCYTES % (AUTO) 8.2 % (13-45); MEAN CORPUSCULAR HGB CONC 34.3 g/dL (32.0-36.0); MEAN CORPUSCULAR VOLUME 94 fl (80-97); MONOCYTES % (AUTO) 6.3 % (3-13); PLATELET COUNT 183 10^3/uL (150-450); RED BLOOD COUNT 4.43 10^6/uL (3.72-5.28); RED CELL DISTRIBUTION WIDTH 12.7 % (11.5-14.0); SEGMENTED NEUTROPHILS % (AUTO) 85.2 % (42-78); TOTAL CELLS COUNTED % (AUTO) 100 %; WHITE BLOOD COUNT 11.5 10^3/uL (4.0-10.5)
[2018-11-18 17:34] LABS: ALBUMIN 4.6 g/dL (3.5-5.0); ALKALINE PHOSPHATASE 64 U/L (38-126); ANION GAP 10 (5-19); ASPARTATE AMINO TRANSFERASE 21 U/L (14-36); BILIRUBIN,DIRECT 0.1 mg/dL (0.0-0.4); BILIRUBIN,TOTAL 0.6 mg/dL (0.2-1.3); BLOOD UREA NITROGEN 26 mg/dL (7-20); CALCIUM 10.3 mg/dL (8.4-10.2); CARBON DIOXIDE 31 mmol/L (22-30); CHLORIDE 104 mmol/L (98-107); GLUCOSE 128 mg/dL (75-110); POTASSIUM 3.9 mmol/L (3.6-5.0); TOTAL PROTEIN 6.9 g/dL (6.3-8.2)
[2018-11-18 17:55] LABS: APPEARANCE,URINE CLEAR; BILIRUBIN,URINE NEGATIVE (NEGATIVE); COLOR,URINE YELLOW; GLUCOSE, URINE NEGATIVE (NEGATIVE); KETONES,URINE NEGATIVE (NEGATIVE); LEUKOCYTE ESTERASE,URINE SMALL (NEGATIVE); NITRITE,URINE NEGATIVE (NEGATIVE); PROTEIN,URINE 30 mg/dL (NEGATIVE); URINE SPECIFIC GRAVITY 1.019; UROBILINOGEN,URINE NEGATIVE mg/dL (<2.0)
[2018-11-18] MEDS ORDERED: NORMAL SALINE 1000 ML 1,000 ML IV ONE (21:16)
[2018-11-18] MEDS ORDERED: ONDANSETRON HCL INJ/PF 4 MG/2 ML SDV IV ONE (21:17)
[2018-11-18] MEDS ORDERED: MORPHINE SULFATE 10 MG/ML INJ IV ONE (21:17)
--- NOTE | 2018-11-18 21:18 | ER Document Report ---
ED GI/ - General Chief Complaint: Abdominal Pain Stated Complaint: ABDOMINAL PAIN/VOMITING/WEAKNESS Time Seen by Provider: 11/18/18 16:44 Mode of Arrival: Wheelchair Notes: Patient is a 68-year-old female that comes to the emergency department for chief complaint of sharp waves of abdominal pain over her mid to lower abdomen that is made her nauseated and she has vomited several times since last night. Pain still will intermittently resolve and then come back in waves. Pain does radiate some to the flank. She denies chest pain, shortness of breath, fever, dysuria. She has had a , reports history of hypothyroidism, denies medical history otherwise. TRAVEL OUTSIDE OF THE [place] IN LAST 30 DAYS: No - Related Data Allergies/Adverse Reactions: cephalexin [From [employer]] Allergy (Verified 11/18/18 16:47) Past Medical History - General Information source: Patient - Social History Smoking Status: Never Smoker Chew tobacco use (# tins/day): No Frequency of alcohol use: None Drug Abuse: None Lives with: Family Family History: Reviewed & Not Pertinent Patient has suicidal ideation: No Patient has homicidal ideation: No Endocrine Medical History: Reports: Hx Hypothyroidism Renal/ Medical History: Denies: Hx Peritoneal Dialysis Musculoskeletal Medical History: Reports Hx Musculoskeletal Trauma - left shoulder and back pain Past Surgical History: Reports: Hx Section, Hx Tonsillectomy - Immunizations Hx Diphtheria, Pertussis, Tetanus Vaccination: No Review of Systems - Review of Systems Constitutional: No symptoms reported EENT: No symptoms reported Cardiovascular: No symptoms reported Respiratory: No symptoms reported Gastrointestinal: See HPI Genitourinary: No symptoms reported Female Genitourinary: No symptoms reported Musculoskeletal: No symptoms reported Skin: No symptoms reported Hematologic/Lymphatic: No symptoms reported Neurological/Psychological: No symptoms reported Physical Exam - Vital signs Vitals: Temp Pulse Resp BP Pulse Ox 97.9 F 88 18 111/88 H 97 11/18/18 16:38 11/18/18 16:38 11/18/18 16:38 11/18/18 16:38 11/18/18 16:38 - Notes Notes: GENERAL: Alert, interacts well. No acute distress. HEAD: Normocephalic, atraumatic. EYES: Pupils equal, round, and reactive to light. Extraocular movements intact. ENT: Oral mucosa dry, tongue midline. Oropharynx unremarkable. Airway patent. NECK: Full range of motion. Supple. Trachea midline. LUNGS: Clear to auscultation bilaterally, no wheezes, rales, or rhonchi. No respiratory distress. HEART: Regular rate and rhythm. No murmur ABDOMEN: There is diffuse tenderness mainly over the mid abdomen, nonspecific, no guarding, no rigidity, no rebound tenderness. GENITOURINARY: Deferred EXTREMITIES: Moves all 4 extremities spontaneously. No edema, normal radial and dorsalis pedis pulses bilaterally. No cyanosis. BACK: no cervical, thoracic, lumbar midline tenderness. No saddle anesthesia, normal distal neurovascular exam. Moves all extremities in full range of motion. NEUROLOGICAL: Alert and oriented x3. Normal speech. Cranial nerves II through XII grossly intact. PSYCH: Normal affect, normal mood. SKIN: Warm, dry, normal turgor. No rashes or lesions noted. Course - Re-evaluation Re-evalutation: Patient is not ill in appearance. She does have mild leukocytosis, chemistry nonspecific, urinalysis nonspecific. Lactic acid added and negative. Because of patient's age, vomiting, mild diffuse tenderness, I discussed with patient and recommended a CAT scan with IV contrast, she is in agreement with this. She does feel much improved after pain/nausea medication and IV fluids. CAT scan showing small bowel obstruction. No other acute findings, chronic nonspecific findings such as right kidney lesion. Will consult surgeon. Discussed with patient. Discussed with Dr. Mendez, patient was seen by the general surgeon, he recommends NG tube and admission to his service. Patient states understanding and agreement with plan. - Vital Signs Vital signs: Temp Pulse Resp BP Pulse Ox 99.6 F 65 16 121/54 L 96 11/18/18 21:19 11/18/18 21:19 11/18/18 21:19 11/18/18 23:01 11/18/18 23:01 - Laboratory Result Diagrams: 11/18/18 17:10 11/18/18 17:10 Laboratory results interpreted by me: 11/18/18 11/18/18 11/18/18 17:10 17:10 17:12 WBC 11.5 H Lymph % (Auto) 8.2 L Absolute Neuts (auto) 9.8 H Seg Neutrophils % 85.2 H Carbon Dioxide 31 H BUN 26 H Creatinine 1.28 H Est GFR ( Amer) 50 L Est GFR (MDRD) Non-Af 41 L Glucose 128 H Calcium 10.3 H Urine Protein 30 H Ur Leukocyte Esterase SMALL H Urine Ascorbic Acid 40 H Discharge - Discharge Clinical Impression: Small bowel obstruction Vomiting Qualifiers: Vomiting type: unspecified Vomiting Intractability: unspecified Nausea presence: with nausea Qualified Code(s): R11.2 - Nausea with vomiting, unspecified Abdominal pain Qualifiers: Abdominal location: generalized Qualified Code(s): R10.84 - Generalized abdominal pain Condition: Stable Disposition: ADMITTED INPATIENT Admitting Provider: Surgicalist Unit Admitted: Surgical Floor
--- NOTE | 2018-11-18 23:16 | RADIOLOGY REPORT (SQ) ---
EXAM DESCRIPTION: CT ABDOMEN PELVIS WITH IV CONTRAST COMPLETED DATE/TME: 11/18/2018 21:16 CLINICAL HISTORY: 68 years, Female, sharp mid abd pain, vomiting COMPARISON: None. TECHNIQUE: Contrast enhanced CT of the abdomen/pelvis was performed. Coronal and sagittal reformations were created. Images stored on PACS. All CT scanners at this facility use dose modulation, iterative reconstruction, and/or weight based dosing when appropriate to reduce radiation dose to as low as reasonably achievable (ALARA). [facility]: Dose Right [facility]: CareDose [facility]: Dose Right [facility]: Teradose 4D [facility]: Smart Demohour LIMITATIONS: None. FINDINGS: Limited evaluation of the lower chest reveals clear lung bases. There is a small hiatal hernia. The liver, spleen, pancreas, gallbladder, and both adrenal glands appear normal. Visualized is an irregular lobulated lesion located within the upper pole of the right kidney measuring approximately 1.2 x 0.9 cm in size on image 35 of series 6. This appears to demonstrate some elements of enhancement, especially along its lateral aspects. A few additional subcentimeter low-density lesions are noted about the kidneys, too small to accurately characterize. No hydronephrosis or hydroureter. Urinary bladder is well distended and shows no suspicious abnormality. The uterus and both ovaries show no suspicious abnormality. A small amount of free fluid layers dependently within the pelvis. Segments of the small bowel are dilated and fluid-filled, especially within the left hemiabdomen. There is associated mesenteric edema as well as engorgement of the mesenteric vessels. Abrupt changing caliber is evident about the left lower quadrant, specifically on image 63 of series 6. There is associated fecalization of small bowel loops just proximal to the site of transition. Remainder of the small bowel appears collapsed. Large bowel is overall normal in caliber. The appendix is not visualized. Vascular structures opacify with contrast normally. No suspicious lymphadenopathy is appreciated. Bone windows show no destructive osseous lesions. IMPRESSION: Findings are consistent with small bowel obstruction with transition point located about the left lower quadrant. Superimposed small amount of mesenteric and pelvic free fluid is likely reactive. Indeterminate exophytic lesion emanating from the upper pole the right kidney. This could indicate a solid renal neoplasm. Recommend correlation with renal mass protocol CT or MR. Small hiatal hernia. TECHNICAL DOCUMENTATION: Quality ID # [id number]: Final reports with documentation of one or more dose reduction techniques (e.g., Automated exposure control, adjustment of the mA and/or kV according to patient size, use of iterative reconstruction technique) copyright 2010 [employer]- All Rights Reserved
[2018-11-19] MEDS ORDERED: LIDOCAINE 1% INJ-PF (10 MG/ML) 30 ML SDV NEB ONE (00:19)
[2018-11-19] MEDS ORDERED: MIDAZOLAM 2 MG/2 ML INJ IV ONE (00:23)
[2018-11-19] MEDS ORDERED: GLUCAGON,HUMAN RECOMB 1 MG INJ SUBCUT PRN (00:46)
[2018-11-19] MEDS ORDERED: DEXTROSE 40% GEL 15 GM TUBE PO PRN ×2 (00:46)
[2018-11-19] MEDS ORDERED: ONDANSETRON HCL INJ/PF 4 MG/2 ML SDV IV PRN (00:46)
[2018-11-19] MEDS ORDERED: DEXTROSE 50%-WATER 25 GM/50 ML DISP.SYRIN IV PRN ×2 (00:46)
--- NOTE | 2018-11-19 01:03 | PDOC H&P ---
History of Present Illness Admission Date/PCP: 11/19/18 00:31 GIRMA POTTER PA-C Patient complains of: Abdominal pain, nausea, vomiting History of Present Illness: SETH KAUR is a 68 year old female with a 1 day history of burning periumbilical pain. Her pain intensified, and she began to feel distended. She then began vomiting. She has vomited multiple times today. Her pain is intermittent and cramping. It has been relieved by narcotic pain medications. Is worse with palpation and movement. She denies melena, hematochezia, hematemesis. Her last bowel movement was yesterday. She has not passed flatus today. She has never experienced pain like this before. She reports one abdominal surgery () more than 30 years ago. She denies chest pain, shortness of breath, fevers, chills, headache, blurry vision, dizziness, fatigue, weakness, paresthesias. Past Medical History Endocrine Medical History: Reports: Hypothyroidism Past Surgical History Past Surgical History: Reports: Section, Tonsillectomy Social History Smoking Status: Never Smoker Frequency of Alcohol Use: Rare Hx Recreational Drug Use: No Hx Prescription Drug Abuse: No Family History Family History: Reviewed & Not Pertinent Parental Family History Reviewed: Yes Children Family History Reviewed: Yes Sibling(s) Family History Reviewed.: Yes Medication/Allergy Home Medications: Levothyroxine Sodium [Synthroid 0.112 mg Tablet] 112 mcg PO DAILY 11/18/18 Torsemide [Demadex 20 mg Tablet] 20 mg PO DAILY 11/18/18 Allergies/Adverse Reactions: cephalexin [From Keflex] Allergy (Verified 11/18/18 16:47) Review of Systems Constitutional: ABSENT: chills, fatigue, fever(s), weakness Eyes: ABSENT: visual disturbances Ears: ABSENT: hearing changes Nose, Mouth, and Throat: ABSENT: sore throat Cardiovascular: ABSENT: chest pain Respiratory: ABSENT: cough, dyspnea Gastrointestinal: PRESENT: abdominal pain, bloating, nausea, vomiting. ABSENT: diarrhea, hematemesis, hematochezia, melena Genitourinary: ABSENT: dysuria Musculoskeletal: ABSENT: back pain Integumentary: ABSENT: pruritus, rash Neurological: ABSENT: confusion, convulsions, dizziness Psychiatric: ABSENT: anxiety, depression Endocrine: ABSENT: cold intolerance, heat intolerance Hematologic/Lymphatic: ABSENT: easy bleeding, easy bruising Physical Exam Vital Signs: Temp Pulse Resp BP Pulse Ox 99.6 F 65 16 121/54 L 96 11/18/18 21:19 11/18/18 21:19 11/18/18 21:19 11/18/18 23:01 11/18/18 23:01 Intake & Output 11/17/18 11/18/18 11/19/18 06:59 06:59 06:59 Weight 88.7 kg General appearance: PRESENT: no acute distress, cooperative Head exam: PRESENT: atraumatic, normocephalic Eye exam: PRESENT: EOMI, PERRLA. ABSENT: scleral icterus Mouth exam: PRESENT: moist, neck supple Neck exam: ABSENT: meningismus, tenderness, thyromegaly, tracheal deviation Respiratory exam: PRESENT: clear to auscultation rebecca, symmetrical, unlabored. ABSENT: chest wall tenderness, tachypnea, wheezes Cardiovascular exam: PRESENT: RRR Pulses: PRESENT: normal radial pulses Vascular exam: PRESENT: normal capillary refill. ABSENT: pallor GI/Abdominal exam: PRESENT: soft, tenderness - midline abdomen, periumbilical. ABSENT: distended, firm, rebound, rigid Rectal exam: PRESENT: deferred Extremities exam: ABSENT: clubbing Musculoskeletal exam: ABSENT: deformity Neurological exam: PRESENT: alert, awake, oriented to person, oriented to place, oriented to time, oriented to situation, CN II-XII grossly intact. ABSENT: motor sensory deficit Psychiatric exam: ABSENT: agitated, anxious, depressed Focused psych exam: ABSENT: delusional Skin exam: ABSENT: cyanosis, erythema, jaundice Results Laboratory Results: 11/18/18 17:10 11/18/18 17:10 11/18/18 11/18/18 11/18/18 17:10 17:10 17:12 WBC 11.5 H RBC 4.43 Hgb 14.2 Hct 41.4 MCV 94 MCH 32.0 MCHC 34.3 RDW 12.7 Plt Count 183 Seg Neutrophils % 85.2 H Sodium 144.9 Potassium 3.9 Chloride 104 Carbon Dioxide 31 H Anion Gap 10 BUN 26 H Creatinine 1.28 H Est GFR ( Amer) 50 L Glucose 128 H Lactic Acid Calcium 10.3 H Total Bilirubin 0.6 AST 21 Alkaline Phosphatase 64 Total Protein 6.9 Albumin 4.6 Lipase 53.4 Urine Color YELLOW Urine Appearance CLEAR Urine pH 6.0 Ur Specific [place] 1.019 Urine Protein 30 H Urine Glucose (UA) NEGATIVE Urine Ketones NEGATIVE Urine Blood NEGATIVE Urine Nitrite NEGATIVE Ur Leukocyte Esterase SMALL H Urine WBC (Auto) 9 Urine RBC (Auto) 12 11/18/18 21:42 WBC RBC Hgb Hct MCV MCH MCHC RDW Plt Count Seg Neutrophils % Sodium Potassium Chloride Carbon Dioxide Anion Gap BUN Creatinine Est GFR ( Amer) Glucose Lactic Acid 0.7 Calcium Total Bilirubin AST Alkaline Phosphatase Total Protein Albumin Lipase Urine Color Urine Appearance Urine pH Ur Specific [place] Urine Protein Urine Glucose (UA) Urine Ketones Urine Blood Urine Nitrite Ur Leukocyte Esterase Urine WBC (Auto) Urine RBC (Auto) Impressions: Abdomen/Pelvis CT 11/18/18 21:16 IMPRESSION: Findings are consistent with small bowel obstruction with transition point located about the left lower quadrant. Superimposed small amount of mesenteric and pelvic free fluid is likely reactive. Indeterminate exophytic lesion emanating from the upper pole the right kidney. This could indicate a solid renal neoplasm. Recommend correlation with renal mass protocol CT or MR. Small hiatal hernia. TECHNICAL DOCUMENTATION: Quality ID # 436: Final reports with documentation of one or more dose reduction techniques (e.g., Automated exposure control, adjustment of the mA and/or kV according to patient size, use of iterative reconstruction technique) copyright 2011 [employer]- All Rights Reserved Assessment & Plan - Diagnosis (1) Small bowel obstruction Is this a current diagnosis for this admission?: Yes - Plan Summary Plan Summary: This is a 68-year-old female with a 1 day history of abdominal pain, nausea, vomiting, and abdominal distention. Patient has a CT scan, which I have reviewed (films and reports). The patient has dilated loops of proximal small bowel with decompressed distal loops. The patient has not passed flatus at all today. She has almost continuous nausea and vomiting. The patient has had one previous surgery, a many years ago. The patient may be experiencing adhesion related small bowel obstruction. I have recommended NG tube placement and the initiation of conservative management. At present, the patient does not exhibit signs of peritonitis or any evidence that she would need an urgent/emergent operation. The plan has been discussed at length with the patient and her sister. They are in agreement with the current treatment course. Repeat labs and abdominal films tomorrow. Further interventions will be determined based on the patient's clinical course.
[2018-11-19] MEDS: MORPHINE SULFATE 10 MG/ML INJ IV PRN ×2 (02:22→10:48)
[2018-11-19] MEDS: DEXTROSE 5%-LACTATED RINGERS 1,000 ML IV PRN ×3 (02:23→21:28)
[2018-11-19] MEDS: ENOXAPARIN SODIUM INJ 40 MG/0.4 ML DISP.SYRIN SUBCUT SCH (10:48)
[2018-11-19] MEDS: FAMOTIDINE INJ/PF 20 MG/2 ML SDV IV SCH ×2 (10:48→21:28)
[2018-11-19] MEDS: KETOROLAC TROMETHAMINE INJ/PF 30 MG/1 ML SDV IV PRN (19:52)
[2018-11-20 04:58] LABS: ABSOLUTE EOSINOPHILS # (AUTO) 0.1 10^3/uL (0.0-0.6); ABSOLUTE LYMPHOCYTES (AUTO) 2.3 10^3/uL (0.5-4.7); ABSOLUTE MONOCYTES (AUTO) 0.4 10^3/uL (0.1-1.4); ABSOLUTE NEUT (AUTO) 2.7 10^3/uL (1.7-8.2); BASOPHILS % (AUTO) 0.5 % (0-2); EOSINOPHILS % (AUTO) 1.6 % (0-6); LYMPHOCYTES % (AUTO) 41.2 % (13-45); MEAN CORPUSCULAR HEMOGLOBIN 32.6 pg (27.0-33.4); MEAN CORPUSCULAR HGB CONC 34.5 g/dL (32.0-36.0); MEAN CORPUSCULAR VOLUME 94 fl (80-97); MONOCYTES % (AUTO) 7.3 % (3-13); PLATELET COUNT 113 10^3/uL (150-450); RED BLOOD COUNT 3.61 10^6/uL (3.72-5.28); RED CELL DISTRIBUTION WIDTH 12.8 % (11.5-14.0); SEGMENTED NEUTROPHILS % (AUTO) 49.4 % (42-78); TOTAL CELLS COUNTED % (AUTO) 100 %; WHITE BLOOD COUNT 5.5 10^3/uL (4.0-10.5)
[2018-11-20 05:08] LABS: BLOOD UREA NITROGEN 21 mg/dL (7-20); CALCIUM 9.4 mg/dL (8.4-10.2); GLUCOSE 96 mg/dL (75-110); HEMOGLOBIN 11.8 g/dL (12.0-15.5)
[2018-11-20 05:09] LABS: ANION GAP 6 (5-19); CARBON DIOXIDE 30 mmol/L (22-30); CHLORIDE 108 mmol/L (98-107); POTASSIUM 3.8 mmol/L (3.6-5.0)
[2018-11-20] MEDS: DEXTROSE 5%-LACTATED RINGERS 1,000 ML IV PRN (09:31)
[2018-11-20] MEDS: FAMOTIDINE INJ/PF 20 MG/2 ML SDV IV SCH ×2 (09:31→21:09)
[2018-11-20] MEDS: KETOROLAC TROMETHAMINE INJ/PF 30 MG/1 ML SDV IV PRN (09:35)
[2018-11-20] MEDS: ENOXAPARIN SODIUM INJ 40 MG/0.4 ML DISP.SYRIN SUBCUT SCH (09:40)
--- NOTE | 2018-11-20 11:50 | PDOC PROGRESS REPORT ---
Subjective Progress Note for:: 11/20/18 Subjective:: Eating flatus and no drainage from NG tube Reason For Visit: SBO Physical Exam Vital Signs: Temp Pulse Resp BP Pulse Ox 98.1 F 55 L 17 146/67 H 98 11/20/18 07:22 11/20/18 07:22 11/20/18 07:22 11/20/18 07:22 11/20/18 07:22 Intake & Output 11/19/18 11/20/18 11/21/18 06:59 06:59 06:59 Intake Total 1000 1932 1000 Output Total 200 300 Balance 800 1632 1000 Weight 88.7 kg 88.2 kg Exam: Abdomen and saw a soft and not distended. Results Laboratory Results: 11/20/18 03:31 11/20/18 03:31 11/20/18 11/20/18 03:31 03:31 WBC 5.5 RBC 3.61 L Hgb 11.8 L D Hct 34.0 L MCV 94 MCH 32.6 MCHC 34.5 RDW 12.8 Plt Count 113 L Seg Neutrophils % 49.4 Sodium 143.9 Potassium 3.8 Chloride 108 H Carbon Dioxide 30 Anion Gap 6 BUN 21 H Creatinine 1.08 Est GFR ( Amer) > 60 Glucose 96 Calcium 9.4 Impressions: Abdomen/Pelvis CT 11/18/18 21:16 IMPRESSION: Findings are consistent with small bowel obstruction with transition point located about the left lower quadrant. Superimposed small amount of mesenteric and pelvic free fluid is likely reactive. Indeterminate exophytic lesion emanating from the upper pole the right kidney. This could indicate a solid renal neoplasm. Recommend correlation with renal mass protocol CT or MR. Small hiatal hernia. TECHNICAL DOCUMENTATION: Quality ID # 436: Final reports with documentation of one or more dose reduction techniques (e.g., Automated exposure control, adjustment of the mA and/or kV according to patient size, use of iterative reconstruction technique) copyright 2011 [employer]- All Rights Reserved Assessment & Plan - Time Time Spent with patient: 15-24 minutes - Inpatient Certification Medical Necessity: Need For IV Fluids - Plan Summary Plan Summary: #1 DC NG tube 2. Start clear liquids and progress to soft diet as tolerated 3 for possible discharge in a.m.
[2018-11-20] MEDS: DOCUSATE SODIUM 100 MG CAPSULE PO SCH (21:09)
[2018-11-21] MEDS: FAMOTIDINE INJ/PF 20 MG/2 ML SDV IV SCH ×2 (09:35→21:12)
[2018-11-21] MEDS: ENOXAPARIN SODIUM INJ 40 MG/0.4 ML DISP.SYRIN SUBCUT SCH (09:36)
--- NOTE | 2018-11-21 10:02 | PDOC PROGRESS REPORT ---
Subjective Progress Note for:: 11/21/18 Reason For Visit: SBO Physical Exam Vital Signs: Temp Pulse Resp BP Pulse Ox 97.2 F 44 L 17 130/46 H 97 11/21/18 07:24 11/21/18 07:24 11/21/18 07:24 11/21/18 07:24 11/21/18 07:24 Intake & Output 11/20/18 11/21/18 11/22/18 06:59 06:59 06:59 Intake Total 1932 3010 Output Total 300 2 Balance 1632 3008 Weight 88.2 kg 86.8 kg General appearance: PRESENT: no acute distress Head exam: PRESENT: normocephalic Eye exam: PRESENT: EOMI Ear exam: PRESENT: normal external ear exam Mouth exam: PRESENT: moist Neck exam: PRESENT: full ROM Respiratory exam: PRESENT: clear to auscultation rebecca Cardiovascular exam: PRESENT: RRR GI/Abdominal exam: PRESENT: soft Rectal exam: PRESENT: deferred Extremities exam: PRESENT: full ROM Musculoskeletal exam: PRESENT: full ROM Neurological exam: PRESENT: alert, awake, oriented to place Psychiatric exam: PRESENT: appropriate affect Skin exam: PRESENT: dry Results Laboratory Results: 11/20/18 03:31 11/20/18 03:31 11/18/18 17:12 Clean Catch Midstream Urine Culture - Final Mixed Urogenital [place] Impressions: Abdomen/Pelvis CT 11/18/18 21:16 IMPRESSION: Findings are consistent with small bowel obstruction with transition point located about the left lower quadrant. Superimposed small amount of mesenteric and pelvic free fluid is likely reactive. Indeterminate exophytic lesion emanating from the upper pole the right kidney. This could indicate a solid renal neoplasm. Recommend correlation with renal mass protocol CT or MR. Small hiatal hernia. TECHNICAL DOCUMENTATION: Quality ID # 436: Final reports with documentation of one or more dose reduction techniques (e.g., Automated exposure control, adjustment of the mA and/or kV according to patient size, use of iterative reconstruction technique) copyright 2011 [employer]- All Rights Reserved Assessment & Plan - Diagnosis (1) Small bowel obstruction Is this a current diagnosis for this admission?: Yes - Plan Summary Plan Summary: pt now passing flatus, chiara soft diet will add dulcolax supp today' can be discharged later if she passes bm.
[2018-11-21] MEDS ORDERED: BISACODYL 10 MG SUPP.RECT PR ONE ×2 (11:00→18:00)
[2018-11-21] MEDS: LEVOTHYROXINE SODIUM 0.112 MG TABLET PO SCH (17:31)
[2018-11-21] MEDS: DOCUSATE SODIUM 100 MG CAPSULE PO SCH (21:12)
[2018-11-22] MEDS: LEVOTHYROXINE SODIUM 0.112 MG TABLET PO SCH (05:36)
--- NOTE | 2018-11-22 08:50 | PDOC PROGRESS REPORT ---
Subjective Progress Note for:: 11/22/18 Reason For Visit: SBO Physical Exam Vital Signs: Temp Pulse Resp BP Pulse Ox 97.3 F 40 L 16 149/74 H 100 11/21/18 17:43 11/21/18 17:43 11/21/18 17:43 11/21/18 17:43 11/21/18 17:43 Intake & Output 11/21/18 11/22/18 11/23/18 06:59 06:59 06:59 Intake Total 3010 1745 Output Total 2 Balance 3008 1745 Weight 86.8 kg 87.2 kg General appearance: PRESENT: no acute distress Head exam: PRESENT: normocephalic Eye exam: PRESENT: EOMI Ear exam: PRESENT: TM's normal bilaterally Mouth exam: PRESENT: moist Neck exam: PRESENT: full ROM Respiratory exam: PRESENT: clear to auscultation rebecca Cardiovascular exam: PRESENT: RRR Pulses: PRESENT: +2 pedal pulses bilateral GI/Abdominal exam: PRESENT: normal bowel sounds, soft Rectal exam: PRESENT: deferred Extremities exam: PRESENT: full ROM Musculoskeletal exam: PRESENT: full ROM Neurological exam: PRESENT: alert, awake, oriented to person, oriented to place Psychiatric exam: PRESENT: appropriate affect Skin exam: PRESENT: dry - pt waiting to have a bm, drinking coffee. will plan on enema if no bm ok for discharge after Results Laboratory Results: 11/20/18 03:31 11/20/18 03:31 Impressions: Abdomen/Pelvis CT 11/18/18 21:16 IMPRESSION: Findings are consistent with small bowel obstruction with transition point located about the left lower quadrant. Superimposed small amount of mesenteric and pelvic free fluid is likely reactive. Indeterminate exophytic lesion emanating from the upper pole the right kidney. This could indicate a solid renal neoplasm. Recommend correlation with renal mass protocol CT or MR. Small hiatal hernia. TECHNICAL DOCUMENTATION: Quality ID # 436: Final reports with documentation of one or more dose reduction techniques (e.g., Automated exposure control, adjustment of the mA and/or kV according to patient size, use of iterative reconstruction technique) copyright 2011 [employer]- All Rights Reserved Assessment & Plan - Diagnosis (1) Small bowel obstruction Is this a current diagnosis for this admission?: Yes
[2018-11-22] MEDS: FAMOTIDINE INJ/PF 20 MG/2 ML SDV IV SCH ×2 (10:05→21:31)
[2018-11-22] MEDS: ENOXAPARIN SODIUM INJ 40 MG/0.4 ML DISP.SYRIN SUBCUT SCH (10:10)
[2018-11-22] MEDS: NA PHOS,M-B/NA PHOS,DI-BA (ADULT) 133 ML ENEMA PR ONE ×2 (11:52→11:59)
[2018-11-22] MEDS ORDERED: MAGNESIUM CITRATE 296 ML BOTTLE PO ONE (13:30)
[2018-11-22] MEDS: DOCUSATE SODIUM 100 MG CAPSULE PO SCH (21:29)
[2018-11-23] MEDS: LEVOTHYROXINE SODIUM 0.112 MG TABLET PO SCH (05:44)
--- NOTE | 2018-11-23 08:38 | PDOC DISCHARGE SUMMARY ---
General - Admit/Disc Date/PCP Admission Date/Primary Care Provider: 11/19/18 00:31 GIRMA POTTER PA-C Discharge Date: 11/23/18 - Discharge Diagnosis Final Diagnosis: Small bowel obstruction - Assessment Summary: This is a 68-year-old female admitted with nausea, vomiting, and abdominal pain. She underwent CT scanning in the ER, consistent with small bowel obstruction. An NG tube was placed, and conservative therapy was initiated. The patient's abdominal pain subsided, and she began passing flatus. Her NG tube was removed, and she was started on a diet. Her diet was advanced, and she began having bowel movements. By 11/23/2018, the patient was ambulating, tolerating a diet, was having bowel movements, and it was felt that she had reached maximal hospital benefit. At this time she is fit for discharge. - Additional Information Resuscitation Status: Full Code Discharge Diet: As Tolerated Discharge Activity: Activity As Tolerated Referrals: CHUCK PATEL FNP-BC [NO LOCAL MD] - Follow up as needed Home Medications: Levothyroxine Sodium [Synthroid 0.112 mg Tablet] 112 mcg PO Q6AM 11/18/18 Torsemide [Demadex 20 mg Tablet] 20 mg PO DAILY 11/18/18 Additional Information: Discharge instructions: Discharge home, diet as tolerated, activity: As tolerated. Follow-up with [facility] on an as-needed basis. No new prescriptions needed. Resume home medications as previously prescribed. History of Present Illiness History of Present Illness: see below Physical Exam Vital Signs: Temp Pulse Resp BP Pulse Ox 98.3 F 49 L 16 137/59 H 100 11/22/18 22:56 11/22/18 22:56 11/22/18 22:56 11/22/18 22:56 11/22/18 22:56 Intake & Output 11/22/18 11/23/18 11/24/18 06:59 06:59 06:59 Intake Total 1745 1175 Balance 1745 1175 Weight 87.2 kg 94.5 kg Results Laboratory Results: WBC 5.5 10^3/uL (4.0-10.5) 11/20/18 03:31 RBC 3.61 10^6/uL (3.72-5.28) L 11/20/18 03:31 Hgb 11.8 g/dL (12.0-15.5) L D 11/20/18 03:31 Hct 34.0 % (36.0-47.0) L 11/20/18 03:31 MCV 94 fl (80-97) 11/20/18 03:31 MCH 32.6 pg (27.0-33.4) 11/20/18 03:31 MCHC 34.5 g/dL (32.0-36.0) 11/20/18 03:31 RDW 12.8 % (11.5-14.0) 11/20/18 03:31 Plt Count 113 10^3/uL (150-450) L 11/20/18 03:31 Lymph % (Auto) 41.2 % (13-45) 11/20/18 03:31 Will % (Auto) 7.3 % (3-13) 11/20/18 03:31 Eos % (Auto) 1.6 % (0-6) 11/20/18 03:31 Baso % (Auto) 0.5 % (0-2) 11/20/18 03:31 Absolute Neuts (auto) 2.7 10^3/uL (1.7-8.2) 11/20/18 03:31 Absolute Lymphs (auto) 2.3 10^3/uL (0.5-4.7) 11/20/18 03:31 Absolute Monos (auto) 0.4 10^3/uL (0.1-1.4) 11/20/18 03:31 Absolute Eos (auto) 0.1 10^3/uL (0.0-0.6) 11/20/18 03:31 Absolute Basos (auto) 0.0 10^3/uL (0.0-0.2) 11/20/18 03:31 Seg Neutrophils % 49.4 % (42-78) 11/20/18 03:31 Sodium 143.9 mmol/L (137-145) 11/20/18 03:31 Potassium 3.8 mmol/L (3.6-5.0) 11/20/18 03:31 Chloride 108 mmol/L (98-107) H 11/20/18 03:31 Carbon Dioxide 30 mmol/L (22-30) 11/20/18 03:31 Anion Gap 6 (5-19) 11/20/18 03:31 BUN 21 mg/dL (7-20) H 11/20/18 03:31 Creatinine 1.08 mg/dL (0.52-1.25) 11/20/18 03:31 Est GFR ( Amer) > 60 (>60) 11/20/18 03:31 Est GFR (MDRD) Non-Af 50 (>60) L 11/20/18 03:31 Glucose 96 mg/dL (75-110) 11/20/18 03:31 Lactic Acid 0.7 mmol/L (0.7-2.1) 11/18/18 21:42 Calcium 9.4 mg/dL (8.4-10.2) 11/20/18 03:31 Total Bilirubin 0.6 mg/dL (0.2-1.3) 11/18/18 17:10 Direct Bilirubin 0.1 mg/dL (0.0-0.4) 11/18/18 17:10 Neonat Total Bilirubin Not Reportable 11/18/18 17:10 Neonat Direct Bilirubin Not Reportable 11/18/18 17:10 Neonat Indirect Bili Not Reportable 11/18/18 17:10 AST 21 U/L (14-36) 11/18/18 17:10 ALT 8 U/L (<35) 11/18/18 17:10 Alkaline Phosphatase 64 U/L (38-126) 11/18/18 17:10 Total Protein 6.9 g/dL (6.3-8.2) 11/18/18 17:10 Albumin 4.6 g/dL (3.5-5.0) 11/18/18 17:10 Lipase 53.4 U/L (23-300) 11/18/18 17:10 Urine Color YELLOW 11/18/18 17:12 Urine Appearance CLEAR 11/18/18 17:12 Urine pH 6.0 (5.0-9.0) 11/18/18 17:12 Ur Specific [place] 1.019 11/18/18 17:12 Urine Protein 30 mg/dL (NEGATIVE) H 11/18/18 17:12 Urine Glucose (UA) NEGATIVE mg/dL (NEGATIVE) 11/18/18 17:12 Urine Ketones NEGATIVE mg/dL (NEGATIVE) 11/18/18 17:12 Urine Blood NEGATIVE (NEGATIVE) 11/18/18 17:12 Urine Nitrite NEGATIVE (NEGATIVE) 11/18/18 17:12 Urine Bilirubin NEGATIVE (NEGATIVE) 11/18/18 17:12 Urine Urobilinogen NEGATIVE mg/dL (<2.0) 11/18/18 17:12 Ur Leukocyte Esterase SMALL (NEGATIVE) H 11/18/18 17:12 Urine WBC (Auto) 9 /HPF 11/18/18 17:12 Urine RBC (Auto) 12 /HPF 11/18/18 17:12 U Hyaline Cast (Auto) 1 /LPF 11/18/18 17:12 Squamous Epi Cells Auto 1 /HPF 11/18/18 17:12 Urine Mucus (Auto) RARE /LPF 11/18/18 17:12 Urine Ascorbic Acid 40 (NEGATIVE) H 11/18/18 17:12 Impressions: Abdomen/Pelvis CT 11/18/18 21:16 IMPRESSION: Findings are consistent with small bowel obstruction with transition point located about the left lower quadrant. Superimposed small amount of mesenteric and pelvic free fluid is likely reactive. Indeterminate exophytic lesion emanating from the upper pole the right kidney. This could indicate a solid renal neoplasm. Recommend correlation with renal mass protocol CT or MR. Small hiatal hernia. TECHNICAL DOCUMENTATION: Quality ID # 436: Final reports with documentation of one or more dose reduction techniques (e.g., Automated exposure control, adjustment of the mA and/or kV according to patient size, use of iterative reconstruction technique) copyright 2011 [employer]- All Rights Reserved
[2018-11-23] MEDS: ENOXAPARIN SODIUM INJ 40 MG/0.4 ML DISP.SYRIN SUBCUT SCH (09:13)
[2018-11-23] MEDS: FAMOTIDINE INJ/PF 20 MG/2 ML SDV IV SCH (09:23)
[2018-11-23 11:22] VITALS: BP 131/58
== END 2018-11-23 11:30 | disposition home or self-care (01) | DRG 390 ==
LOC: ER 16:33 → EH 11-19 00:31 → 4W 11-19 10:05 → 4N 11-19 14:26
PROVIDERS: ADMIT Surgery; ATTEND Surgery
DX: K56.609 Unspecified intestinal obstruction, unspecified as to partial versus complete obstruction (principal); E03.9 Hypothyroidism, unspecified; Z88.1 Allergy status to other antibiotic agents
CPT/HCPCS: 36415; 74177; 80048; 80053; 81001; 83605; 83690; 85025; 87086; 96361; 96374; 96375; 99285; J1650; J1885; J2250; J2270; J2405; J3490; J7030; J7121; S0028

== ENCOUNTER → 2018-12-25 | Outpatient (CLI) | payer MEDICARE, OTHER ==
[2018-12-25 13:15] LABS: FREE T3 2.62 pg/mL (2.77-5.27); FREE T4 (FREE THYROXINE) 1.32 ng/dL (0.78-2.19)
[2018-12-25 13:28] LABS: THYROID STIMULATING HORMONE 6.06 uIU/mL (0.47-4.68)
== END ==
LOC: OD 11:37
PROVIDERS: ATTEND Internal Medicine Endocrinology, Diabetes & Metabolism
DX: E03.9 Hypothyroidism, unspecified (principal)
CPT/HCPCS: 36415; 84439; 84443; 84481

== ENCOUNTER → 2019-01-08 | Outpatient (CLI) | payer MEDICARE, OTHER ==
--- NOTE | 2019-01-08 12:38 | RADIOLOGY REPORT (SQ) ---
EXAM DESCRIPTION: CHEST 2 VIEWS COMPLETED DATE/TIME: 01/08/2019 12:11 pm REASON FOR STUDY: R07.89 OTHER CHEST PAIN COMPARISON: 10/04/2016 EXAM PARAMETERS: NUMBER OF VIEWS: two views TECHNIQUE: Digital Frontal and Lateral radiographic views of the chest acquired. RADIATION DOSE: NA LIMITATIONS: none FINDINGS: LUNGS AND PLEURA: No opacities, masses or pneumothorax. No pleural effusion. MEDIASTINUM AND HILAR STRUCTURES: No masses or contour abnormalities. HEART AND VASCULAR STRUCTURES: Heart normal size. No evidence for failure. BONES: No acute findings. HARDWARE: None in the chest. OTHER: No other significant finding. IMPRESSION: NO ACUTE RADIOGRAPHIC FINDING IN THE CHEST. TECHNICAL DOCUMENTATION: JOB ID: [id number] [employer]- All Rights Reserved Reading location - IP/workstation name: [email or web address]
== END ==
LOC: RAD 11:45
PROVIDERS: ATTEND Nurse Practitioner Family
DX: R07.89 Other chest pain (principal)
CPT/HCPCS: 71046

== ENCOUNTER → 2019-03-15 | Outpatient (CLI) | payer MEDICARE, OTHER ==
[2019-03-15 11:56] LABS: ABSOLUTE EOSINOPHILS # (AUTO) 0.1 10^3/uL (0.0-0.6); ABSOLUTE LYMPHOCYTES (AUTO) 1.3 10^3/uL (0.5-4.7); ABSOLUTE MONOCYTES (AUTO) 0.4 10^3/uL (0.1-1.4); ABSOLUTE NEUT (AUTO) 2.5 10^3/uL (1.7-8.2); BASOPHILS % (AUTO) 0.6 % (0-2); EOSINOPHILS % (AUTO) 1.4 % (0-6); HEMATOCRIT 39.1 % (36.0-47.0); HEMOGLOBIN 13.4 g/dL (12.0-15.5); LYMPHOCYTES % (AUTO) 30.9 % (13-45); MEAN CORPUSCULAR HEMOGLOBIN 32.2 pg (27.0-33.4); MEAN CORPUSCULAR HGB CONC 34.3 g/dL (32.0-36.0); MEAN CORPUSCULAR VOLUME 94 fl (80-97); MONOCYTES % (AUTO) 8.4 % (3-13); PLATELET COUNT 165 10^3/uL (150-450); RED BLOOD COUNT 4.16 10^6/uL (3.72-5.28); RED CELL DISTRIBUTION WIDTH 12.7 % (11.5-14.0); SEGMENTED NEUTROPHILS % (AUTO) 58.7 % (42-78); TOTAL CELLS COUNTED % (AUTO) 100 %; WHITE BLOOD COUNT 4.2 10^3/uL (4.0-10.5)
[2019-03-15 12:24] LABS: ALBUMIN 4.2 g/dL (3.5-5.0); ALKALINE PHOSPHATASE 72 U/L (38-126); ANION GAP 8 (5-19); ASPARTATE AMINO TRANSFERASE 23 U/L (14-36); BILIRUBIN,DIRECT 0.3 mg/dL (0.0-0.4); BILIRUBIN,TOTAL 0.6 mg/dL (0.2-1.3); BLOOD UREA NITROGEN 29 mg/dL (7-20); CALCIUM 9.7 mg/dL (8.4-10.2); CARBON DIOXIDE 32 mmol/L (22-30); CHLORIDE 101 mmol/L (98-107); CHOLESTEROL 201.69 mg/dL (0-200); GLUCOSE 88 mg/dL (75-110); POTASSIUM 4.5 mmol/L (3.6-5.0); TOTAL PROTEIN 6.7 g/dL (6.3-8.2); TRIGLYCERIDES 87 mg/dL (<150)
[2019-03-15 12:38] LABS: DIRECT LDL 138 mg/dL (<100)
== END ==
LOC: OD 10:25
PROVIDERS: ATTEND Nurse Practitioner Family
DX: E03.9 Hypothyroidism, unspecified (principal); I10 Essential (primary) hypertension; E55.9 Vitamin D deficiency, unspecified; R60.9 Edema, unspecified; R73.09 Other abnormal glucose
CPT/HCPCS: 36415; 80053; 80061; 82306; 83036; 84436; 84443; 84480; 85025

== ENCOUNTER → 2019-06-25 | Outpatient (CLI) | payer MEDICARE, OTHER ==
[2019-06-26 12:28] LABS: ABSOLUTE EOSINOPHILS # (AUTO) 0.1 10^3/uL (0.0-0.6); ABSOLUTE LYMPHOCYTES (AUTO) 1.4 10^3/uL (0.5-4.7); ABSOLUTE MONOCYTES (AUTO) 0.4 10^3/uL (0.1-1.4); ABSOLUTE NEUT (AUTO) 4.1 10^3/uL (1.7-8.2); BASOPHILS % (AUTO) 0.6 % (0-2); HEMATOCRIT 39.1 % (36.0-47.0); HEMOGLOBIN 13.6 g/dL (12.0-15.5); LYMPHOCYTES % (AUTO) 23.1 % (13-45); MEAN CORPUSCULAR HEMOGLOBIN 32.4 pg (27.0-33.4); MEAN CORPUSCULAR HGB CONC 34.8 g/dL (32.0-36.0); MEAN CORPUSCULAR VOLUME 93 fl (80-97); MONOCYTES % (AUTO) 6.9 % (3-13); PLATELET COUNT 151 10^3/uL (150-450); RED CELL DISTRIBUTION WIDTH 12.7 % (11.5-14.0); SEGMENTED NEUTROPHILS % (AUTO) 68.4 % (42-78); TOTAL CELLS COUNTED % (AUTO) 100 %; WHITE BLOOD COUNT 6.1 10^3/uL (4.0-10.5)
[2019-06-26 12:48] LABS: ALBUMIN 4.2 g/dL (3.5-5.0); ALKALINE PHOSPHATASE 70 U/L (38-126); ANION GAP 6 (5-19); ASPARTATE AMINO TRANSFERASE 22 U/L (14-36); BILIRUBIN,TOTAL 0.6 mg/dL (0.2-1.3); BLOOD UREA NITROGEN 27 mg/dL (7-20); CALCIUM 9.6 mg/dL (8.4-10.2); CARBON DIOXIDE 31 mmol/L (22-30); CHLORIDE 102 mmol/L (98-107); GLUCOSE 91 mg/dL (75-110); POTASSIUM 4.3 mmol/L (3.6-5.0); TOTAL PROTEIN 6.6 g/dL (6.3-8.2); TRIGLYCERIDES 101 mg/dL (<150)
[2019-06-26 12:59] LABS: DIRECT LDL 138 mg/dL (<100)
== END ==
LOC: OD 13:42
PROVIDERS: ATTEND Nurse Practitioner Family
DX: E03.9 Hypothyroidism, unspecified (principal); E55.9 Vitamin D deficiency, unspecified; I10 Essential (primary) hypertension; R60.9 Edema, unspecified
CPT/HCPCS: 36415; 80053; 80061; 82306; 84436; 84443; 84480; 85025